=== PATIENT | male | born 1950 | race Caucasian/White ===

== ENCOUNTER 2021-05-03 08:27 | Outpatient (REF) | payer BC, SELFPAY ==
[2021-05-03 10:33] LABS: Hemoglobin 16.1 g/dl (14.0-18.0); Mean Corpuscular Hemoglobin 32.3 pg (27.0-33.0); Mean Corpuscular Volume 92.4 fL (80.0-98.0); Mean Platelet Volume 10.5 fL (9.4-12.4); Platelet Count 318 X10*3/uL (160-400); Red Blood Count 4.98 X10*6/uL (4.60-5.80); Red Cell Distribution Width 12.1 % (11.0-16.0); White Blood Count 8.1 X10*3/uL (4.8-10.8)
[2021-05-03 11:18] LABS: Alanine Aminotransferase 32 U/L (0-40); Albumin Level 4.6 g/dL (3.5-5.0); Alkaline Phosphatase 70 U/L (39-117); Anion Gap 12 (12-20); Aspartate Amino Transferase 32 U/L (5-37); Blood Urea Nitrogen 7 mg/dL (9-16); Calcium 10.1 mg/dL (8.4-10.2); Carbon Dioxide 30 mmol/L (22-29); Chloride 96 mmol/L (96-108); Cholesterol 141 mg/dL; Estimated Glomerular Filt Rate > 60; Glucose Fasting 106 mg/dL (60-99); HDL Cholesterol 73 mg/dL; LDL Cholesterol Calculated 46 mg/dl; Potassium 4.4 mmol/L (3.3-5.1); Sodium 134 mmol/L (135-145); Total Protein 7.6 g/dL (6.5-8.0); Triglycerides 110 mg/dL
[2021-05-03 11:36] LABS: Estimated Average Glucose 105 mg/dL; Hemoglobin A1C 149.0676 umol/L; Hemoglobin A1c % 5.3 %
[2021-05-03 11:39] LABS: TSH reflex Free T4 1.17 uIU/mL (0.32-4.0)
== END 2021-05-03 08:28 | disposition home or self-care (01) ==
LOC: HO.WFDLDS 08:27
PROVIDERS: Visit Provider Hospitalist
DX: Z00.00 Encounter for general adult medical examination without abnormal findings (principal); E11.9 Type 2 diabetes mellitus without complications
CPT/HCPCS: 36415; 80053; 80061; 83036; 84443; 85027

== ENCOUNTER 2021-08-27 12:20 | Day surgery (SDC) | payer BC, SELFPAY ==
[2021-08-27 13:00] VITALS: BMI 24.6
[2021-08-27 13:09] VITALS: BP 148/96; PULSE 102; RESP 16; TEMP 36.4; O2SAT 99
[2021-08-27] MEDS: Lactated Ringers 1,000 ML 50 ML IVCONT (13:23)
--- NOTE | 2021-08-27 13:42 | HO.ANESPROP2 ---
[facility] Active Problems Active Problems: All Active Problems (Updated 04/23/21 @ 13:48 by Claudia Del Rosario NP) Diabetes type 2, controlled (Acute) Normal physical exam (Acute) Essential hypertension (Acute) Family History Family History Father Colon cancer Mother H/O thyroidectomy Daughter In good health Daughter In good health Sister No problems noted. Brother No problems noted. Family history of problems with anesthesia: No Surgical History Surgical History History of tonsillectomy and adenoidectomy History of Problems with Anesthesia: No Social History Social History Housing: House Patient Tobacco Use Status: Never used Tobacco e-Cigarette/Vaping Use: Never Used Use of substances other than those prescribed or required for medical reasons: No Are you DNR?: No Advance Directives: No Advance Directives Information Provided: Yes Current occupational status: employed Meds Allergies Allergy/AdvReac Type Severity Reaction Status Date / Time No Known Allergies Allergy Verified 08/27/21 13:00 Active Medications: Current Medications Lactated Ringer's (Lr) 1,000 mls @ 50 mls/hr IVCONT .Q20H SUNDAY Last Admin: 08/27/21 13:23 Dose: 50 mls/hr Documented by: Sodium Biphosphate/Sodium Phosphate (Sodium Phosphate,[place]-Dibasic 133 Ml Enema) 133 ml NE ONCE PRN PRN Reason: Poor Colonoscopy Prep Results Exam Exam Date and Time: August 27, 2021 1342 Height,Weight and Vital Signs: Height 6 ft 1 in Weight 84.822 kg Last Vital Signs Temp 97.5 F 08/27/21 13:09 Pulse 102 H 08/27/21 13:09 Resp 16 08/27/21 13:09 BP 148/96 H 08/27/21 13:09 Pulse Ox 99 08/27/21 13:09 Airway Mallampati Class: III TM Dist: >3cm Neck ROM: Full Assessment and Plan Assessment Anesthesia Assessment: Anesthesia Plan Discussed and Chart Reviewed Final Anesthetic Review Family History of Problems with Anesthesia: No History of Problems with Anesthesia: No NPO: Yes ASA Class: III Final Preanesthetic Review: No Changes in Pt Med Stat, Meds/Allgs Chart Reviewed, Consent Obtained/Reviewed and Anes Risks/Benef Reviewed Patient Risk: Intermediate Procedure Risk: Low Anesthetic Plan Anesthetic Plan: MAC: Disposition: Standard PACU
[2021-08-27 14:33] LABS: Glucose, Whole Blood 94 mg/dL (60-115)
[2021-08-27 16:05] VITALS: BP 107/64; PULSE 80; RESP 16; TEMP 36.5; O2SAT 95
--- NOTE | 2021-08-27 16:06 | PM.OP ---
Brief Operative Note Date of Service: 08/27/21 Pre-op diagnosis: Screening Post-op diagnosis: other (Colon polyps) Procedure: Colonoscopy to the cecum and TI with bx/removal of polyps, and hot snare polypectomies of a proximal transverse colon polyp and a polyp at 30cm Surgeon: Issa Alvarez Anesthesia: MAC Was an Bulb Planter used for this Procedure?: No Estimated blood loss (mL): 2.0 Pathology: other (A. Cecal polyp B. Ascending colon polyp C. Proximal transverse colon polyps D. Polyp at 60cm E. Polyp at 30cm) Condition: stable Disposition: PACU
[2021-08-27 16:20] VITALS: BP 125/82; PULSE 78; RESP 18; TEMP 36.8; O2SAT 98
[2021-08-27 16:35] VITALS: BP 142/86; PULSE 80; RESP 20; TEMP 36.7; O2SAT 98
--- NOTE | 2021-08-27 21:35 | OP_ITS ---
SURGEON: Issa Alvarez MD INDICATIONS: The patient presents for followup of colorectal cancer screening, personal history of tubular adenoma of the colon, and family history of colon cancer. Full consent was obtained from him for the procedure, including risks of bleeding and perforation. PREOPERATIVE DIAGNOSIS: POSTOPERATIVE DIAGNOSIS: PROCEDURE PERFORMED: Colonoscopy to the cecum and terminal ileum with hot snare polypectomy and cold biopsy with removal of polyps. ESTIMATED BLOOD LOSS: COMPLICATIONS: ANESTHESIA: Monitored anesthesia care. ASSISTANTS: SPECIMENS: PREOPERATIVE DIAGNOSES: Colorectal cancer screening, personal history of tubular adenoma of the colon, family history of colon cancer. POSTOPERATIVE DIAGNOSES: Colorectal cancer screening, personal history of tubular adenoma of the colon, family history of colon cancer, colon polyps, diverticulosis and internal hemorrhoids. DESCRIPTION OF PROCEDURE: The patient was placed in the left lateral decubitus position. The digital rectal exam revealed no abnormalities. The [employer] video pediatric colonoscope was entered into the rectum and advanced easily to the cecum. Once in the cecum, I did identify a normal-appearing cecal pouch other than a 3 mm polyp, which was biopsied and completely removed with the cold biopsy forceps. The appendiceal orifice appeared normal. The terminal ileum was cannulated and appeared normal. The scope was withdrawn into the colon. The remainder of the cecum appeared normal. The scope was slowly withdrawn assessing all mucosal surfaces carefully. Preparation was excellent. In the ascending colon was a flat 3 or 4 mm polyp, which was biopsied and completely removed with the cold biopsy forceps. In the proximal transverse colon was a 3 mm polyp, which was biopsied and completely removed with the cold biopsy forceps. In the same area was an approximately 8-10 mm polyp, which was removed with a hot snare polypectomy and recovered by suction. The polypectomy site appeared clean, without any sign of residual polyp nor bleeding. At 60 cm was a 3 or 4 mm polyp, which was biopsied and completely removed with the cold biopsy forceps. At 30 cm was an approximately 8-10 mm polyp, which was removed by hot snare polypectomy and recovered by suction. The polypectomy site appeared clean, without any sign of residual polyp nor bleeding. I did not visualize any other polyps, colitis, nor angiodysplasia. There was a mild amount of sigmoid diverticulosis. In the rectum, the scope was retroflexed visualizing small internal hemorrhoids, but no other pathology. The rectal mucosa appeared normal. The scope was straightened and withdrawn from the patient. He tolerated the procedure well and was returned to the recovery area in stable condition. IMPRESSION: 1. Colon polyps. 2. Diverticulosis. 3. Internal hemorrhoids. PLAN: The results of the pathology will be checked. I would recommend a repeat colonoscopy in 5 years for further surveillance. He was advised not to use any aspirin and NSAIDs for 1 week. He will otherwise see me on a p.r.n. basis. MD VIBHA Johnson/RYLAND / [id number]
== END 2021-08-27 16:48 | disposition home or self-care (01) ==
PROVIDERS: PCP Hospitalist; Visit Provider Internal Medicine
PROC: 0DJD8ZZ Inspection of Lower Intestinal Tract, Via Natural or Artificial Opening Endoscopic (ICD-10-PCS; CPT 45378; principal; 2021-08-27 13:30)
DX: Z12.11 Encounter for screening for malignant neoplasm of colon (principal); Z86.010 Personal history of colon polyps; Z80.0 Family history of malignant neoplasm of digestive organs; D12.0 Benign neoplasm of cecum; D12.2 Benign neoplasm of ascending colon; D12.3 Benign neoplasm of transverse colon; D12.4 Benign neoplasm of descending colon; D12.5 Benign neoplasm of sigmoid colon; K57.30 Diverticulosis of large intestine without perforation or abscess without bleeding; K64.8 Other hemorrhoids; I10 Essential (primary) hypertension; E78.5 Hyperlipidemia, unspecified; E11.9 Type 2 diabetes mellitus without complications; Z79.84 Long term (current) use of oral hypoglycemic drugs; Z79.899 Other long term (current) drug therapy
CPT/HCPCS: 45385; 45380; 82947; 88305

== ENCOUNTER 2022-07-05 08:11 | Outpatient (REF) | payer MEDICARE, SELFPAY ==
[2022-07-05 11:13] LABS: Hemoglobin 16.8 g/dl (14.0-18.0); Mean Corpuscular HGB Conc 34.3 g/dl (31.0-36.0); Mean Corpuscular Volume 93.3 fL (80.0-98.0); Mean Platelet Volume 10.9 fL (9.4-12.4); Platelet Count 304 X10*3/uL (160-400); Red Blood Count 5.25 X10*6/uL (4.60-5.80); Red Cell Distribution Width 12.5 % (11.0-16.0)
[2022-07-05 11:50] LABS: Appearance Urine Clear; Color Urine Yellow; Glucose Urine UA Negative (Negative); Leukocyte Esterase Urine Negative (Negative); Nitrite Urine Negative (Negative); Specific Gravity - Urine 1.015 (1.005-1.025); Urine Blood Negative (Negative); Urine Ketones Negative (Negative); Urine Protein Negative (Neg-Trace)
[2022-07-05 12:06] LABS: Alanine Aminotransferase 20 U/L (0-40); Albumin Level 4.3 g/dL (3.5-5.0); Alkaline Phosphatase 72 U/L (39-117); Anion Gap 15 (12-20); Aspartate Amino Transferase 25 U/L (5-37); Blood Urea Nitrogen 11 mg/dL (9-16); Calcium 9.2 mg/dL (8.4-10.2); Carbon Dioxide 26 mmol/L (22-29); Chloride 99 mmol/L (96-108); Cholesterol 174 mg/dL; Estimated Glomerular Filt Rate > 60; Glucose Fasting 110 mg/dL (60-99); HDL Cholesterol 75 mg/dL; LDL Cholesterol Calculated 71 mg/dl; Potassium 4.3 mmol/L (3.3-5.1); Sodium 136 mmol/L (135-145); Total Protein 6.7 g/dL (6.5-8.0); Triglycerides 144 mg/dL
[2022-07-05 12:08] LABS: TSH reflex Free T4 1.59 uIU/mL (0.32-4.0)
[2022-07-12 01:24] LABS: PSA, Ultra Sensitive 2.01 ng/mL
== END 2022-07-05 08:12 | disposition home or self-care (01) ==
LOC: HO.WFDLDS 08:11
PROVIDERS: Visit Provider Hospitalist
DX: Z00.00 Encounter for general adult medical examination without abnormal findings (principal); Z12.5 Encounter for screening for malignant neoplasm of prostate; Z11.3 Encounter for screening for infections with a predominantly sexual mode of transmission
CPT/HCPCS: 36415; 80053; 80061; 81003; 84153; 84443; 85027

== ENCOUNTER 2023-01-20 11:15 | Outpatient (AMB) | payer MEDICARE, SELFPAY ==
[2023-01-20 11:16] VITALS: BP 146/80; PULSE 88; RESP 13; TEMP 36.6; O2SAT 99; BMI 25.9
--- NOTE | 2023-01-20 11:16 | A.OFFPC_ITS ---
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: No Accompanied by: Self / Same As Patient Allergies No Known Allergies Allergy (Verified 01/20/23 11:38) Medication List - Last Reconciled 01/20/23 by Heidy Loving CNP atorvastatin 20 mg PO DAILY hydrochlorothiazide 12.5 mg PO DAILY lisinopril 40 mg PO DAILY Tobacco use date assessed: 06/12/22 Last assessed Fall Risk: 01/20/23 Dental Screening Dental Screen Date: 01/20/23 Did you have a dental visit in the last 12 months?: Yes Did you have a dental problem in the last 6 months where you did not have access to dental care?: No Was dental information given to patient?: Patient has dentist HPI HPI Comments History of Present Illness Details 72-year-old male presents for hypertensi on, hyperlipidemia, and diabetes follow-up. His former PCP is JAXON, who was no longer in the practice. His last blood work was in June 2022. Triglyceride level was 144, cholesterol 174, LDL, 71 and HDL 75. He is on atorvastatin, hydrochlorothiazide, and lisinopril. He admits to taking his medications as prescribed, however, he forgets to take them once or twice weekly. He notes that his diabetes has been well controlled. He was on metformin insulin year ago, his PCP discontinued the medication. He admits to consuming excessive amount of salt. He states that his last eye exam was early this year at [facility]: normal. [facility] Medical History (Updated 01/20/23 @ 11:23 by Little Dumont MA) No pertinent past medical history Surgical History History of tonsillectomy and adenoidectomy Family History Father Colon cancer Mother H/O thyroidectomy Daughter In good health Daughter In good health Sister No problems noted. Brother No problems noted. Social History Housing: House Patient Tobacco Use Status: Never used Tobacco e-Cigarette/Vaping Use: Never Used service: No Current occupational status: retired Cognitive needs: No Hearing needs: No Vision needs: No Questionnaire Thrive Questionnaire Date Thrive assessed: 06/12/22 SUZANNE-7 AMB Questionnaire SUZANNE-7 Date SUZANNE - 7 assessed: 06/12/22 Source: Developed by Drs. Issa Reynolds, Autumn Wilson, Omi Carlin and colleagues, with an educational ewa from [employer]. Review of Systems Const Details: Const Denies chills, Denies fatigue, Denies fever(s), Denies headache(s) and Denies weakness ENT Denies dizziness and Denies headache(s) Card Denies chest pain, Denies lightheadedness, Denies dyspnea and Denies other (Palpitations) Resp Denies cough, Denies dyspnea, Denies wheezing and Denies other ( shortness of breath) GI Denies abdominal pain, Denies melena, Denies hematochezia, Denies change in bowel habits, Denies dyspepsia and Denies nausea Denies hematuria and Denies dysuria Musc Denies abnormal gait, Denies myalgias, Denies arthralgias, Denies numbness and Denies tingling Skin/Breast Denies rash, Denies unusual bruising and Denies wounds Neuro Denies abnormal gait, Denies dizziness, Denies headache(s), Denies memory loss, Denies numbness, Denies Sensory deficit (Neuro), Denies tingling and Denies weakness Psych Denies anxiety, Denies depression, Denies memory loss Endo Denies cold intolerance, Denies fatigue, Denies heat intolerance, Denies polydipsia and Denies polyuria Aller/Immun Denies wheezing Physical exam (Primary Care) Vital Signs: Last Vital Signs Temp 97.8 F 01/20/23 11:16 Pulse 88 01/20/23 11:16 Resp 13 01/20/23 11:16 BP 146/80 H 01/20/23 11:16 Pulse Ox 99 01/20/23 11:16 Oxygen Delivery Method Room Air 01/20/23 11:16 BMI result Body Mass Index 25.9 Tobacco/Smoking Status: Tobacco use Status Tobacco use date assessed 06/12/22 01/20/23 11:23 Patient Tobacco Use Status Never used Tobacco 01/20/23 11:23 e-Cigarette/Vaping Use Never Used 01/20/23 11:23 Thrive Assessment: Date of Thrive Assessment Date Thrive assessed 06/12/22 01/20/23 11:23 Const Other: General: no acute distress and well developed Nutritional Appearance: well nourished Orientation/consciousness: patient oriented x3 HENMT Head: Yes normocephalic and Yes atraumatic Eyes General: appearance normal, both eyes and all related structures Pupils: Equal, round and reactive pupils present EOM: EOMs intact bilaterally Resp Effort & Inspection: normal respiratory effort Auscultation: clear to auscultation bilaterally Cardio Rate: regular rate Rhythm: regular rhythm Heart sounds: S1 normal heart sound present, S2 normal heart sound present, no gallops, no murmurs and no rubs GI Palpation (GI): No Abdominal aortic bruit present, Soft to palpation, nontender, No hepatosplenomegaly present and No Rebound tenderness present Auscultation: normal bowel sounds General: Yes no CVA tenderness Back/Spine/Pelvis Back: no CVA tenderness Cervical Spine: cervical ROM normal and No Cervical spine tenderness Thoracic/Lumbar Spine: thoraco-lumbar ROM normal, No pain with thoraco-lumbar ROM, No thoracic spinal tenderness and No lumbar spinal tenderness Extrem General: Yes normal to inspection, No edema and No calf tenderness Skin General: warm and dry. Normal skin color. Normal skin turgor Lesions: no lesions Rashes: no rashes Trauma: no lacerations or abrasions Wounds: no wounds Nails: normal Neuro General: patient oriented x3, gait normal and no focal neuro deficit Cranial nerves: Yes Equal, round and reactive pupils present Cognition (Neuro): normal cognition Gait exam (Neuro): Normal gait present Sensory Exam: No Sensory deficit (Neuro) Psych Appearance: grossly normal Affect: normal affect Attitude: cooperative Thought process: Normal thought process present Results AMB Hemoglobin A1c AMB Hemoglobin A1c 5.6 % Last Edit by Little Dumont MA on 01/20/23 11:47 Assessment and Plan Assessment & Plan (1) Diabetes type 2, controlled: Code(s): E11.9 - Type 2 diabetes mellitus without complications Plan: A1c today is 5.6%, within goal of less than 7.0%. Previous A1c a year ago was 5.4% Lipid levels were normal in June. LDL was 71 Will repeat lipid panel. Advised to fast for at least 10-12 hours and get blood work done before next visit. Will review the results and make changes to his care plan if warranted. Continue to take atorvastatin as prescribed. ADA diet and routine exercise encouraged Follow-up in 1 month for hypertension Return sooner with symptoms or concerns Verbalized understanding and agreed with treatment plan. (2) Essential hypertension: Code(s): I10 - Essential (primary) hypertension Plan: Resting blood pressure is 140/80, slightly above goal of less than 140/90 Continue to take lisinopril and hydrochlorothiazide as prescribed He admits to excessive sodium intake. Advised to limit sodium intake to no more than a 1000 mg daily He notes he had a normal eye exam earlier this year. Record not available for review. Will request record. Follow-up in 1 month or return sooner with symptoms or concerns Verbalized understanding and agreed with treatment plan. Orders: Orders Lipid Panel Today E11.9 - Type 2 diabetes mellitus without complications AMB Hemoglobin A1c Today Z13.9 - Encounter for screening, unspecified Coding Level of Care Code Est Pt Level 3 (16821) Diagnoses Diabetes type 2, controlled E11.9 Essential hypertension I10
[2023-01-20 11:38] VITALS: BP 140/80
== END 2023-01-20 11:58 | disposition home or self-care (01) ==
PROVIDERS: PCP Nurse Practitioner Family; Visit Provider Nurse Practitioner Family
DX: E11.9 Type 2 diabetes mellitus without complications (principal); I10 Essential (primary) hypertension
CPT/HCPCS: 83036; 99213

== ENCOUNTER 2023-02-12 09:21 | Outpatient (REF) | payer MEDICARE, SELFPAY ==
[2023-02-12 12:30] LABS: Cholesterol 174 mg/dL (<200); HDL Cholesterol 69 mg/dL (>40); LDL Cholesterol Calculated 74 mg/dL (<100); Triglycerides 155 mg/dL (<150)
== END 2023-02-12 09:22 | disposition home or self-care (01) ==
LOC: HO.WFDLDS 09:21
PROVIDERS: Visit Provider Nurse Practitioner Family
DX: E11.9 Type 2 diabetes mellitus without complications (principal)
CPT/HCPCS: 36415; 80061

== ENCOUNTER 2023-03-17 11:32 | Outpatient (AMB) | payer MEDICARE, SELFPAY ==
[2023-03-17 11:39] VITALS: BP 144/80; PULSE 97; RESP 13; TEMP 36.6; O2SAT 99; BMI 25.8
--- NOTE | 2023-03-17 11:39 | MHC.PC.OV ---
Vital Signs 03/17/23 11:39 03/17/23 12:12 Height 6 ft 1 in Weight 195 lb 4 oz BMI 25.8 BP 144/80 H 120/80 Blood Pressure Location Rt brachial Lt brachial Position Sitting Sitting Respiration 13 Pulse 97 Pulse Source Pulse Oximeter Temp 97.9 F Temp Source Temporal Artery Scan Pulse Oximetry (%) 99 Oxygen Delivery Method Room Air Intake Visit Reasons: f/u HTN Glass Designer Required: No Accompanied by: Spouse Allergies No Known Allergies Allergy (Verified 03/17/23 11:59) Medication List - Last Reconciled 03/17/23 by Heidy Loving CNP atorvastatin 20 mg PO DAILY hydrochlorothiazide 12.5 mg PO DAILY lisinopril 40 mg PO DAILY Tobacco use date assessed: 03/17/23 Fall risk assessment: No Falls in past year Last assessed Fall Risk: 03/17/23 Dental Screening Dental Screen Date: 03/17/23 Did you have a dental visit in the last 12 months?: Yes Did you have a dental problem in the last 6 months where you did not have access to dental care?: No Was dental information given to patient?: Patient has dentist HPI HPI Comments History of Present Illness Details 73 y/o male, accompanied by his , presents for HTN follow up His resting BP at his last vist was 140/80 He admits to taking his medications as prescribed He states that his home BP readings in the past 3 days are 130/84, 135/81, and 113/75 He notes that he completely eliminated salt in his diet since his last office visit He offers no complaints and denies acute symptoms at this time [facility] Medical History No pertinent past medical history Surgical History History of tonsillectomy and adenoidectomy Family History Father Colon cancer Mother H/O thyroidectomy Daughter In good health Daughter In good health Sister No problems noted. Brother No problems noted. Housing: House Patient Tobacco Use Status: Never used Tobacco e-Cigarette/Vaping Use: Never Used service: No Current occupational status: retired Cognitive needs: No Hearing needs: No Vision needs: No Questionnaire Thrive Questionnaire Date Thrive assessed: 06/12/22 SUZANNE-7 AMB Questionnaire SUZANNE-7 Date SUZANNE - 7 assessed: 06/12/22 Source: Developed by Drs. Issa Reynolds, Autumn Wilson, Omi Carlin and colleagues, with an educational ewa from [employer]. Review of Systems Const Details: Const Denies chills, Denies fatigue, Denies fever(s), Denies headache(s) and Denies weakness ENT Denies dizziness and Denies headache(s) Card Denies chest pain, Denies lightheadedness, Denies dyspnea and Denies other (Palpitations) Resp Denies cough, Denies dyspnea, Denies wheezing and Denies other ( shortness of breath) GI Denies abdominal pain, Denies melena, Denies hematochezia, Denies change in bowel habits, Denies dyspepsia and Denies nausea Denies hematuria and Denies dysuria Musc Denies abnormal gait, Denies myalgias, Denies arthralgias, Denies numbness and Denies tingling Skin/Breast Denies rash, Denies unusual bruising and Denies wounds Neuro Denies abnormal gait, Denies dizziness, Denies headache(s), Denies memory loss, Denies numbness, Denies Sensory deficit (Neuro), Denies tingling and Denies weakness Psych Denies anxiety, Denies depression, Denies memory loss Endo Denies cold intolerance, Denies fatigue, Denies heat intolerance, Denies polydipsia and Denies polyuria Aller/Immun Denies wheezing Physical exam (Primary Care) Vital Signs: Last Vital Signs Temp 97.9 F 03/17/23 11:39 Pulse 97 03/17/23 11:39 Resp 13 03/17/23 11:39 BP 144/80 H 03/17/23 11:39 Pulse Ox 99 03/17/23 11:39 Oxygen Delivery Method Room Air 03/17/23 11:39 BMI result Body Mass Index 25.8 Tobacco/Smoking Status: Tobacco use Status Tobacco use date assessed 03/17/23 03/17/23 11:47 Patient Tobacco Use Status Never used Tobacco 03/17/23 11:47 e-Cigarette/Vaping Use Never Used 03/17/23 11:47 Thrive Assessment: Date of Thrive Assessment Date Thrive assessed 06/12/22 03/17/23 11:47 Const Other: General: no acute distress and well developed Nutritional Appearance: well nourished Orientation/consciousness: patient oriented x3 [facility] Head: Yes normocephalic and Yes atraumatic Eyes General: appearance normal, both eyes and all related structures Pupils: Equal, round and reactive pupils present EOM: EOMs intact bilaterally Resp Effort & Inspection: normal respiratory effort Auscultation: clear to auscultation bilaterally Cardio Rate: regular rate Rhythm: regular rhythm Heart sounds: S1 normal heart sound present, S2 normal heart sound present, no gallops, no murmurs and no rubs GI Palpation (GI): No Abdominal aortic bruit present, Soft to palpation, nontender, No hepatosplenomegaly present and No Rebound tenderness present Auscultation: normal bowel sounds General: Yes no CVA tenderness Back/Spine/Pelvis Back: no CVA tenderness Cervical Spine: cervical ROM normal and No Cervical spine tenderness Thoracic/Lumbar Spine: thoraco-lumbar ROM normal, No pain with thoraco-lumbar ROM, No thoracic spinal tenderness and No lumbar spinal tenderness Extrem General: Yes normal to inspection, No edema and No calf tenderness Skin General: warm and dry. Normal skin color. Normal skin turgor Lesions: no lesions Rashes: no rashes Trauma: no lacerations or abrasions Wounds: no wounds Nails: normal Neuro General: patient oriented x3, gait normal and no focal neuro deficit Cranial nerves: Yes Equal, round and reactive pupils present Cognition (Neuro): normal cognition Gait exam (Neuro): Normal gait present Sensory Exam: No Sensory deficit (Neuro) Psych Appearance: grossly normal Affect: normal affect Attitude: cooperative Thought process: Normal thought process present Assessment and Plan Assessment & Plan (1) Essential hypertension: Code(s): I10 - Essential (primary) hypertension Plan: Resting blood pressure is 120/80, slightly above goal of less than 130/80 Continue current treatment regimen Low-sodium diet encouraged Follow-up in 2 months or return sooner with symptoms or concerns Verbalized understanding and agreed with treatment plan (2) Hyperlipidemia: Code(s): E78.5 - Hyperlipidemia, unspecified Plan: Recent LDL 74, slightly above goal of less than 70 Continue current treatment regimen Advised to limit foods high in saturated fat and avoid foods high in trans fat Routine exercise encouraged Will recheck lipid level in 2 months. Advised to get fasting blood work done before next visit Follow-up in 2 months Verbalized understanding and agreed with treatment plan Orders: Orders Lipid Panel 2 Months E11.9 - Type 2 diabetes mellitus without complications, E78.5 - Hyperlipidemia, unspecified Coding Level of Care Code Est Pt Level 3 (90025) Diagnoses Essential hypertension I10 Hyperlipidemia E78.5
[2023-03-17 12:12] VITALS: BP 120/80
== END 2023-03-17 12:26 | disposition home or self-care (01) ==
PROVIDERS: PCP Nurse Practitioner Family; Visit Provider Nurse Practitioner Family
DX: I10 Essential (primary) hypertension (principal); E78.5 Hyperlipidemia, unspecified
CPT/HCPCS: 99213

== ENCOUNTER 2023-05-22 08:30 | Outpatient (REF) | payer MEDICARE, SELFPAY ==
[2023-05-22 11:55] LABS: Cholesterol 159 mg/dL (<200); HDL Cholesterol 79 mg/dL (>40); LDL Cholesterol Calculated 53 mg/dL (<100); Triglycerides 135 mg/dL (<150)
== END 2023-05-22 08:31 | disposition home or self-care (01) ==
LOC: HO.WFDLDS 08:30
PROVIDERS: Visit Provider Nurse Practitioner Family
DX: E11.9 Type 2 diabetes mellitus without complications (principal); E78.5 Hyperlipidemia, unspecified
CPT/HCPCS: 36415; 80061

== ENCOUNTER 2023-05-26 09:59 | Outpatient (AMB) | payer MEDICARE, SELFPAY ==
[2023-05-26 10:01] VITALS: BP 144/78; PULSE 75; RESP 13; TEMP 36.5; O2SAT 99; BMI 25.6
--- NOTE | 2023-05-26 10:01 | A.OFFPC_ITS ---
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 Accompanied by: Self / Same As Patient Allergies No Known Allergies Allergy (Verified 05/26/23 10:20) Medication List - Last Reconciled 05/26/23 by Heidy Loving CNP atorvastatin 20 mg PO DAILY hydrochlorothiazide 12.5 mg PO DAILY lisinopril 40 mg PO DAILY Tobacco use date assessed: 05/26/23 Fall risk assessment: No Falls in past year Last assessed Fall Risk: 05/26/23 Dental Screening Dental Screen Date: 05/26/23 Did you have a dental visit in the last 12 months?: Yes Did you have a dental problem in the last 6 months where you did not have access to dental care?: No Was dental information given to patient?: Patient has dentist HPI HPI Comments 2 History of Present Illness Details 73-year-old male presents for hypertensi on, hyperlipidemia, and diabetes follow-up He admits to taking his medications as prescribed without adverse reactions He brought a BP log for the past nine days. His BP is 128-140/73-91 He offers no complaints and denies acute symptoms at this time He notes that his last eye exam was almost a year ago. His next appointment is next month He states he has not been followed by Podiatry in several years and does not want to be referred at this time. He will notify his PCP if he changes his mind on podiatry referral [facility] Medical History No pertinent past medical history Surgical History History of tonsillectomy and adenoidectomy Family History (Updated 05/26/23 @ 10:09 by Little Dumont MA) Father Colon cancer Mother H/O thyroidectomy Daughter In good health Daughter In good health Sister No problems noted. Brother No problems noted. Social History Housing: House Patient Tobacco Use Status: Never used Tobacco e-Cigarette/Vaping Use: Never Used service: No Current occupational status: retired Cognitive needs: No Hearing needs: No Vision needs: No Questionnaire Thrive Questionnaire Date Thrive assessed: 06/12/22 SUZANNE-7 AMB Questionnaire SUZANNE-7 Date SUZANNE - 7 assessed: 06/12/22 Source: Developed by Drs. Issa Reynolds, Autumn Wilson, Omi Carlin and colleagues, with an educational ewa from [employer] Review of Systems Const Details: Const Denies chills, Denies fatigue, Denies fever(s), Denies headache(s) and Denies weakness ENT Denies dizziness and Denies headache(s) Card Denies chest pain, Denies lightheadedness, Denies dyspnea and Denies other (Palpitations) Resp Denies cough, Denies dyspnea, Denies wheezing and Denies other ( shortness of breath) GI Denies abdominal pain, Denies melena, Denies hematochezia, Denies change in bowel habits, Denies dyspepsia and Denies nausea Denies hematuria and Denies dysuria Musc Denies abnormal gait, Denies myalgias, Denies arthralgias, Denies numbness and Denies tingling Skin/Breast Denies rash, Denies unusual bruising and Denies wounds Neuro Denies abnormal gait, Denies dizziness, Denies headache(s), Denies memory loss, Denies numbness, Denies Sensory deficit (Neuro), Denies tingling and Denies weakness Psych Denies anxiety, Denies depression, Denies memory loss Endo Denies cold intolerance, Denies fatigue, Denies heat intolerance, Denies polydipsia and Denies polyuria Aller/Immun Denies wheezing Physical exam (Primary Care) Vital Signs: Last Vital Signs Temp 97.7 F 05/26/23 10:01 Pulse 75 05/26/23 10:01 Resp 13 05/26/23 10:01 BP 144/78 H 05/26/23 10:01 Pulse Ox 99 05/26/23 10:01 Oxygen Delivery Method Room Air 05/26/23 10:01 BMI result Body Mass Index 25.6 Tobacco/Smoking Status: Tobacco use Status Tobacco use date assessed 05/26/23 05/26/23 10:09 Patient Tobacco Use Status Never used Tobacco 05/26/23 10:05 e-Cigarette/Vaping Use Never Used 05/26/23 10:05 Thrive Assessment: Date of Thrive Assessment Date Thrive assessed 06/12/22 05/26/23 10:05 Const Other: General: no acute distress and well developed Nutritional Appearance: well nourished Orientation/consciousness: patient oriented x3 HENMT Head: Yes normocephalic and Yes atraumatic Eyes General: appearance normal, both eyes and all related structures Pupils: Equal, round and reactive pupils present EOM: EOMs intact bilaterally Resp Effort & Inspection: normal respiratory effort Auscultation: clear to auscultation bilaterally Cardio Rate: regular rate Rhythm: regular rhythm Heart sounds: S1 normal heart sound present, S2 normal heart sound present, no gallops, no murmurs and no rubs GI Palpation (GI): No Abdominal aortic bruit present, Soft to palpation, nontender, No hepatosplenomegaly present and No Rebound tenderness present Auscultation: normal bowel sounds General: Yes no CVA tenderness Back/Spine/Pelvis Back: no CVA tenderness Cervical Spine: cervical ROM normal and No Cervical spine tenderness Thoracic/Lumbar Spine: thoraco-lumbar ROM normal, No pain with thoraco-lumbar ROM, No thoracic spinal tenderness and No lumbar spinal tenderness Extrem General: Yes normal to inspection, No edema and No calf tenderness Skin General: warm and dry. Normal skin color. Normal skin turgor Neuro General: patient oriented x3, gait normal and no focal neuro deficit Cranial nerves: Yes Equal, round and reactive pupils present Cognition (Neuro): normal cognition Gait exam (Neuro): Normal gait present Sensory Exam: No Sensory deficit (Neuro) Psych Appearance: grossly normal Affect: normal affect Attitude: cooperative Thought process: Normal thought process present Results AMB Hemoglobin A1c AMB Hemoglobin A1c 5.4 % Last Edit by Little Dumont MA on 05/26/23 10:38 Assessment and Plan Assessment & Plan (1) Diabetes type 2, controlled: Code(s): E11.9 - Type 2 diabetes mellitus without complications Plan: A1c today is 5.4%, within goal of less than 7.0% ADA diet and routine exercise encouraged Will recheck A1c in 3 months Follow-up for complete physical exam in 1 month Return sooner with symptoms or concerns Verbalized understanding and agreed with treatment plan (2) Essential hypertension: Code(s): I10 - Essential (primary) hypertension Plan: Resting blood pressure is 130/80, slightly above goal of less than 130/80 Will increase hydrochlorothiazide to 25 mg daily. Take as prescribed Continue to take lisinopril as prescribed Low-sodium diet encouraged Verbalized understanding and agreed with treatment plan (3) Hyperlipidemia: Code(s): E78.5 - Hyperlipidemia, unspecified Plan: Recent lipid levels her within normal limits. LDL is 53, within goal of less than 70 Continue to take atorvastatin as prescribed Advised to limit foods high in saturated fat and avoid foods high in trans fat Routine exercise encouraged Verbalized understanding and agreed with the plan (4) Laboratory tests ordered as part of a complete physical exam (CPE): Code(s): Z00.00 - Encounter for general adult medical examination without abnormal fin dings Plan: Fasting labs ordered as part of a complete physical exam. Advised to fast for at least 10 hours before getting labs drawn. May drink water Verbalized understanding and agreed with treatment plan. Orders: Orders Comprehensive [place]. Panel Fast Today Z00.00 - Encounter for general adult medical examination without abnormal findings TSH reflex Free T4 Today Z00.00 - Encounter for general adult medical examination without abnormal findings Complete Blood Count Auto Diff Today Z00.00 - Encounter for general adult medical examination without abnormal findings Lipid Panel Today Z00.00 - Encounter for general adult medical examination without abnormal findings PSA, Ultra Sensitive Today Z00.00 - Encounter for general adult medical examination without abnormal findings UA CC w/rflx Micro + Cult Today Z00.00 - Encounter for general adult medical examination without abnormal findings Medications: New hydrochlorothiazide 25 mg PO DAILY 90 days 90 tabs 1RF Discontinued hydrochlorothiazide Discontinued Reason: Doctor's Order 12.5 mg PO DAILY 90 caps 3RF Coding Level of Care Code Est Pt Level 4 (01988) Diagnoses Diabetes type 2, controlled E11.9 Essential hypertension I10 Hyperlipidemia E78.5 Laboratory tests ordered as part of a complete physical exam (CPE) Z00.00
[2023-05-26 10:26] VITALS: BP 130/80
== END 2023-05-26 10:38 | disposition home or self-care (01) ==
PROVIDERS: PCP Nurse Practitioner Family; Visit Provider Nurse Practitioner Family
DX: E11.69 Type 2 diabetes mellitus with other specified complication (principal); I10 Essential (primary) hypertension; E78.5 Hyperlipidemia, unspecified
CPT/HCPCS: 83036; 99214

== ENCOUNTER 2023-06-25 08:08 | Outpatient (REF) | payer MEDICARE, SELFPAY ==
[2023-06-25 12:38] LABS: TSH reflex Free T4 1.36 uIU/mL (0.32-4.0)
[2023-06-25 14:21] LABS: Appearance Urine Clear; Color Urine Yellow; Glucose Urine UA Negative (Negative); Leukocyte Esterase Urine Negative (Negative); Nitrite Urine Negative (Negative); PH 6.5 (5.0-9.0); Urine Blood Negative (Negative); Urine Ketones Negative (Negative); Urine Protein Negative (Neg-Trace)
== END 2023-06-25 08:09 | disposition home or self-care (01) ==
LOC: HO.WFDLDS 08:08
PROVIDERS: Visit Provider Nurse Practitioner Family
DX: Z00.00 Encounter for general adult medical examination without abnormal findings (principal); Z13.29 Encounter for screening for other suspected endocrine disorder; Z13.220 Encounter for screening for lipoid disorders; Z12.5 Encounter for screening for malignant neoplasm of prostate
CPT/HCPCS: 36415; 80053; 80061; 81003; 84153; 84443; 85025

== ENCOUNTER 2023-06-25 08:15 | Outpatient (REF) | payer MEDICARE, SELFPAY ==
[2023-06-25 11:19] LABS: MANUAL DIFF FLAG NO
[2023-06-25 11:25] LABS: Basophils Absolute Auto 0.1 X10*3/uL (0.0-0.2); Basophils Percent Auto 0.7 % (0-2); Eosinophils Absolute Auto 0.1 X10*3/uL (0.0-0.4); Eosinophils Percent Auto 1.3 % (0-4); Hematocrit 44.9 % (42.0-52.0); Hemoglobin 16.1 g/dl (14.0-18.0); Imm Gran Abs Auto 0.02 X10*3/uL (0.00-0.03); Imm Gran Pct Auto 0.3 % (0.0-0.4); Lymphocytes Absolute Auto 2.2 X10*3/uL (1.2-4.9); Lymphocytes Percent Auto 28.8 % (20-40); Mean Corpuscular HGB Conc 35.9 g/dl (31.0-36.0); Mean Corpuscular Hemoglobin 32.5 pg (27.0-33.0); Mean Corpuscular Volume 90.5 fL (80.0-98.0); Mean Platelet Volume 10.2 fL (9.4-12.4); Monocytes Absolute Auto 0.7 X10*3/uL (0.1-1.2); Monocytes Percent Auto 8.6 % (2-11); Neutrophils Absolute Auto 4.5 x10*3/uL (2.0-8.3); Neutrophils Percent Auto 60.3 % (45-73); Platelet Count 295 X10*3/uL (160-400); Red Blood Count 4.96 X10*6/uL (4.60-5.80); Red Cell Distribution Width 11.9 % (11.0-16.0); White Blood Count 7.5 X10*3/uL (4.8-10.8)
[2023-06-25 12:54] LABS: Anion Gap 12 (12-20)
[2023-06-25 13:03] LABS: Alanine Aminotransferase 21 U/L (0-40); Albumin Level 4.6 g/dL (3.5-5.0); Alkaline Phosphatase 67 U/L (39-117); Aspartate Amino Transferase 26 U/L (5-37); Bilirubin Total 1.6 mg/dL (0.0-1.0); Blood Urea Nitrogen 8 mg/dL (9-16); Calcium 9.3 mg/dL (8.4-10.2); Carbon Dioxide 29 mmol/L (22-29); Chloride 93 mmol/L (96-108); Cholesterol 153 mg/dL (<200); Estimated Glomerular Filt Rate > 60; Glucose Fasting 119 mg/dL (60-99); HDL Cholesterol 79 mg/dL (>40); LDL Cholesterol Calculated 48 mg/dL (<100); Potassium 3.5 mmol/L (3.3-5.1); Sodium 130 mmol/L (135-145); Total Protein 7.3 g/dL (6.5-8.0); Triglycerides 132 mg/dL (<150)
[2023-06-30 18:04] LABS: PSA, Ultra Sensitive 2.48 ng/mL
== END 2023-06-25 08:16 | disposition home or self-care (01) ==
LOC: HO.WFDLDS 08:15
PROVIDERS: Visit Provider Nurse Practitioner Family
DX: Z13.89 Encounter for screening for other disorder (principal)
CPT/HCPCS: 36415; 80053; 80061; 84153; 85025

== ENCOUNTER 2023-06-30 09:57 | Outpatient (AMB) | payer MEDICARE, SELFPAY ==
[2023-06-30 10:07] VITALS: BP 128/74; PULSE 82; RESP 13; TEMP 36.2; O2SAT 99; BMI 25.8
--- NOTE | 2023-06-30 10:07 | MHC.PC.OV ---
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 Accompanied by: Self / Same As Patient Allergies No Known Allergies Allergy (Verified 06/30/23 10:34) Medication List - Last Reconciled 06/30/23 by Heidy Loving CNP atorvastatin 20 mg PO DAILY hydrochlorothiazide 25 mg PO DAILY 90 days lisinopril 40 mg PO DAILY Tobacco use date assessed: 05/26/23 Fall risk assessment: No Falls in past year Last assessed Fall Risk: 06/30/23 Dental Screening Dental Screen Date: 06/30/23 Did you have a dental visit in the last 12 months?: Yes Did you have a dental problem in the last 6 months where you did not have access to dental care?: No Was dental information given to patient?: Patient has dentist HPI HPI Comments History of Present Illness Details 73-year-old male presents for an extended physical exam He has history of hypertension, hyperlipidemia, and well-controlled diabetes not currently on medication therapy He admits to taking his medications as prescribed without adverse reactions He offers no complaints and denies acute symptoms at this time He notes that he had a normal eye exam with Dr. Burrows last week Last colonoscopy with [facility] was in Aug, 2021: Tubular adenoma He states that he is up-to-date on shingles, PNA, and influenza vaccines Nonsmoker, drinks 3-5 beers 2-3 times weekly, smokes marijuana occasionally [facility] Medical History No pertinent past medical history Surgical History History of tonsillectomy and adenoidectomy Family History Father Colon cancer Mother H/O thyroidectomy Daughter In good health Daughter In good health Sister No problems noted. Brother No problems noted. Social History Housing: House Patient Tobacco Use Status: Never used Tobacco e-Cigarette/Vaping Use: Never Used service: No Current occupational status: retired Cognitive needs: No Hearing needs: No Vision needs: No Questionnaire PHQ-9 Over the last 2 weeks, how often have you been bothered by any of the following problems? 1. Little interest or pleasure in doing things: not at all 2. Feeling down, depressed, or hopeless: not at all 3. Trouble falling or staying asleep, or sleeping too much: not at all 4. Feeling tired or having little energy: not at all 5. Poor appetite or overeating: not at all 6. Feeling bad about yourself - or that you are a failure or have let yourself or your family down: not at all 7. Trouble concentrating on things, such as reading the newspaper or watching television: not at all 8. Moving or speaking so slowly that other people could have noticed. Or the opposite - being so fidgety or restless that you have been moving around a lot more than usual: not at all 9. Thoughts that you would be better off or of hurting yourself in some way: not at all Total score: 0 Depression Screening Interpretation: Negative Depression Screening Done: Yes 19975 - PHQ-9 Billing: Yes Source: Developed by Drs. Issa Reynolds, Autumn Wilson, Omi Carlin and colleagues, with an educational ewa from [employer] Thrive Questionnaire Date Thrive assessed: 06/30/23 I am a: Patient What is your living situation today?: I have a steady place to live Within the past 12 months, did the food you bought not last and you didn't have the money to get more?: Never true Within the past 12 months, did you worry whether your food would run out before you got money to buy more?: Never true Do you have trouble getting transportation to medical appointments?: No Do you have trouble paying your heating and electricity bill?: No Do you have trouble taking care of your child, family member or friend?: No Do you have trouble with day-to-day activities such as bathing, preparing meals, shopping, managing finances, etc.?: No Are you currently unemployed and looking for a job?: No Are you interested in more education?: Yes Please select the resources that you would like help with: Education Currently or been in a relationship where the following occur: no concerns reported THRIVE Score: 0 AUDIT C Alcohol Use Questionnaire (AUDIT-C) 1. How often do you have a drink containing alcohol?: 2-3 times a week 2. How many drinks containing alcohol do you have on a typical day when you are drinking?: 3 or 4 Total Score: 4 SUZANNE-7 AMB Questionnaire SUZANNE-7 Date SUZANNE - 7 assessed: 06/30/23 Feeling nervous, anxious, or on edge: 1 = Several days Not being able to stop or control worryin = Several days Worrying too much about different things: 1 = Several days Trouble relaxin = Not at all Being so restless that it is hard to sit still: 0 = Not at all Becoming easily annoyed or irritable: 0 = Not at all Feeling afraid as if something awful might happen: 0 = Not at all Total SUZANNE-7 score (0-4 normal; 5-9 mild; 10-14 moderate; 15-21 severe): 3 Source: Developed by Drs. Issa Reynolds, Autumn Wilson, Omi Carlin and colleagues, with an educational ewa from [employer] SUZANNE-7 Assessment Billing SUZANNE-7 Assessment Tool: SUZANNE-7 Assessment 14574 Review of Systems Const Details: Denies chills, Denies fatigue, Denies fever(s), Denies headache(s) and Denies weakness HEENT Denies change in vision, Denies dizziness, Denies headache(s), Denies hearing loss, Denies nasal congestion, Denies sinus pain, Denies sinus pressure and Denies sore throat Card Denies chest pain, Denies lightheadedness, Denies dyspnea and Denies other (palpitations) Resp Denies cough, Denies dyspnea and Denies wheezing GI Denies abdominal pain, Denies melena, Denies hematochezia, Denies change in bowel habits, Denies dyspepsia and Denies nausea Denies hematuria and Denies dysuria Musc Denies abnormal gait, Denies myalgias, Denies arthralgias, Denies numbness and Denies tingling Skin/Breast Denies rash, Denies unusual bruising and Denies wounds Neuro Denies abnormal gait, Denies dizziness, Denies headache(s), Denies memory loss, Denies numbness, Denies Sensory deficit (Neuro), Denies tingling and Denies weakness Psych Denies anxiety, Denies depression and Denies memory loss Endo Denies cold intolerance, Denies fatigue, Denies heat intolerance, Denies polydipsia and Denies polyuria Davey/Lymph Denies easy bleeding and Denies easy bruising Aller/Immun Denies wheezing Physical exam (Primary Care) Vital Signs: Last Vital Signs Temp 97.2 F 06/30/23 10:07 Pulse 82 06/30/23 10:07 Resp 13 06/30/23 10:07 BP 128/74 06/30/23 10:07 Pulse Ox 99 06/30/23 10:07 Oxygen Delivery Method Room Air 06/30/23 10:07 BMI result Body Mass Index 25.8 Tobacco/Smoking Status: Tobacco use Status Tobacco use date assessed 05/26/23 06/30/23 10:18 Patient Tobacco Use Status Never used Tobacco 06/30/23 10:18 e-Cigarette/Vaping Use Never Used 06/30/23 10:18 PHQ-9: PHQ-9 Score PHQ-9: Total score 0 06/30/23 10:18 Depression Screening Interpretation: Negative Thrive Assessment: Date of Thrive Assessment Date Thrive assessed 06/30/23 06/30/23 10:18 Currently or been in a relationship where the following occur: no concerns reported Const Other: General: no acute distress, well developed, alert and awake Nutritional Appearance: well nourished Orientation/consciousness: patient oriented x3 HENMT Head: Yes normocephalic and Yes atraumatic Ears: hearing grossly normal bilaterally and TM's normal bilaterally General nose exam: Normal external nose present and Normal nares present Mouth: Normal oral and palatal mucosa present and moist mucous membranes Teeth and gingiva: dentition normal Throat: Yes oropharynx normal Eyes Pupils: Equal, round and reactive pupils present and Pupil accommodation reflex normal EOM: EOMs intact bilaterally Neck Neck: Yes normal visual inspection, Yes no lymphadenopathy and Yes trachea midline Thyroid: Thyroid normal Carotids: no bruits Lymphatic: no lymphadenopathy noted Chest Chest palpation & inspection: normal inspection of the chest Resp Effort & Inspection: normal respiratory effort Auscultation: clear to auscultation bilaterally Cardio Rate: regular rate Rhythm: regular rhythm Heart sounds: S1 normal heart sound present, S2 normal heart sound present, no gallops, no murmurs and no rubs Bruits: no abdominal aortic bruits and no carotid bruits GI Palpation (GI): No Abdominal aortic bruit present, Soft to palpation, nontender, No hepatosplenomegaly present and No Rebound tenderness present Auscultation: normal bowel sounds General: Yes no CVA tenderness Back/Spine/Pelvis Back: no CVA tenderness Cervical Spine: cervical ROM normal and No Cervical spine tenderness Thoracic/Lumbar Spine: thoraco-lumbar ROM normal, No pain with thoraco-lumbar ROM, No thoracic spinal tenderness and No lumbar spinal tenderness Skin General: warm and dry. Normal skin color. Normal skin turgor Lesions: no lesions Rashes: no rashes Trauma: no lacerations or abrasions Wounds: no wounds Nails: normal Neuro General: patient oriented x3, gait normal and CN's II-XI intact bilaterally Cranial nerves: Yes Equal, round and reactive pupils present Cognition (Neuro): normal cognition Gait exam (Neuro): Normal gait present Motor exam (neuro): 5/5 motor strength present throughout Sensory Exam: No Sensory deficit (Neuro) Deep tendon reflexes (DTR's): Right patellar reflex intensity grade: 2+ and Left patellar reflex intensity grade: 2+ Extrem General: Yes normal to inspection, No edema and No calf tenderness Psych Appearance: grossly normal Affect: normal affect Attitude: cooperative Thought process: Normal thought process present Assessment and Plan Assessment & Plan (1) Normal physical exam: Code(s): Z00.00 - Encounter for general adult medical examination without abnormal findings Plan: No significant physical restrictions or limitations noted Continue current treatment regimen Healthy diet and routine exercise encouraged Follow-up in 2 months for diabetes and hypertension Return sooner with symptoms or concerns Verbalized understanding and agreed with the treatment plan Coding Level of Care Code Est Pt Prev Care >65y(78989) Diagnoses Normal physical exam Z00.00 Additional Codes SUZANNE-7 Assessment Billing - SUZANNE-7 Assessment Tool: SUZANNE-7 Assessment 82375 ([id number])
== END 2023-06-30 10:48 | disposition home or self-care (01) ==
PROVIDERS: PCP Nurse Practitioner Family; Visit Provider Nurse Practitioner Family
DX: Z00.00 Encounter for general adult medical examination without abnormal findings (principal)
CPT/HCPCS: 99397

== ENCOUNTER 2023-09-01 08:00 | Outpatient (AMB) | payer MEDICARE, SELFPAY ==
--- NOTE | 2023-09-01 08:08 | A.OFFPC_ITS ---
Vital Signs 09/01/23 08:10 09/01/23 08:17 Height 6 ft 1 in Weight 195 lb 4 oz BMI 25.8 BP 138/80 130/80 Blood Pressure Location Rt brachial Rt brachial Position Right Lateral Respiration 16 Pulse 79 Pulse Source Pulse Oximeter Pulse Oximetry (%) 98 Oxygen Delivery Method Room Air Intake Visit Reasons: 2 mos DM, HTN Intake Note: Follow up [employer] Required: No Allergies No Known Allergies Allergy (Verified 09/01/23 08:13) Medication List - Last Reconciled 09/01/23 by Heidy Loving CNP atorvastatin 20 mg PO DAILY hydrochlorothiazide 25 mg PO DAILY 90 days lisinopril 40 mg PO DAILY Tobacco use date assessed: 05/26/23 Dental Screening Dental Screen Date: 06/30/23 HPI HPI Comments History of Present Illness Details 73-year-old male presents for diabetes a nd hypertension follow-up He is on lisinopril, hydrochlorothiazide, and atorvastatin which he admits to taking as prescribed without adverse reactions His diabetes is well controlled without current medication management He offers no complaints and denies acute symptoms at this time He notes that 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 Brother No problems noted. Social History Housing: House Patient Tobacco Use Status: Never used Tobacco e-Cigarette/Vaping Use: Never Used service: No Current occupational status: retired Cognitive needs: No Hearing needs: No Vision needs: No Questionnaire Thrive Questionnaire Date Thrive assessed: 06/30/23 SUZANNE-7 AMB Questionnaire SUZANNE-7 Date SUZANNE - 7 assessed: 06/30/23 Source: Developed by Drs. Issa Reynolds, Autumn Wilson, Omi Carlin and colleagues, with an educational ewa from [employer]. Review of Systems Const Details: Const Denies chills, Denies fatigue, Denies fever(s), Denies headache(s) and Denies weakness ENT Denies dizziness and Denies headache(s) Card Denies chest pain, Denies lightheadedness, Denies dyspnea and Denies other (Palpitations) Resp Denies cough, Denies dyspnea, Denies wheezing and Denies other ( shortness of breath) GI Denies abdominal pain, Denies melena, Denies hematochezia, Denies change in bowel habits, Denies dyspepsia and Denies nausea Denies hematuria and Denies dysuria Musc Denies abnormal gait, Denies myalgias, Denies arthralgias, Denies numbness and Denies tingling Skin/Breast Denies rash, Denies unusual bruising and Denies wounds Neuro Denies abnormal gait, Denies dizziness, Denies headache(s), Denies memory loss, Denies numbness, Denies Sensory deficit (Neuro), Denies tingling and Denies weakness Psych Denies anxiety, Denies depression, Denies memory loss Endo Denies cold intolerance, Denies fatigue, Denies heat intolerance, Denies polydipsia and Denies polyuria Aller/Immun Denies wheezing Physical exam (Primary Care) Tobacco/Smoking Status: Tobacco use Status Tobacco use date assessed 05/26/23 06/30/23 10:18 Patient Tobacco Use Status Never used Tobacco 06/30/23 10:18 e-Cigarette/Vaping Use Never Used 06/30/23 10:18 Thrive Assessment: Date of Thrive Assessment Date Thrive assessed 06/30/23 06/30/23 10:18 Const Other: General: no acute distress and well developed Nutritional Appearance: well nourished Orientation/consciousness: [facility]: Yes normocephalic and Yes atraumatic Eyes General: appearance normal, both eyes and all related structures Pupils: Equal, round and reactive pupils present EOM: EOMs intact bilaterally Resp Effort & Inspection: normal respiratory effort Auscultation: clear to auscultation bilaterally Cardio Rate: regular rate Rhythm: regular rhythm Heart sounds: S1 normal heart sound present, S2 normal heart sound present, no gallops, no murmurs and no rubs GI Palpation (GI): No Abdominal aortic bruit present, Soft to palpation, nontender, No hepatosplenomegaly present and No Rebound tenderness present Auscultation: normal bowel sounds General: Yes no CVA tenderness Back/Spine/Pelvis Back: no CVA tenderness Cervical Spine: cervical ROM normal and No Cervical spine tenderness Thoracic/Lumbar Spine: thoraco-lumbar ROM normal, No pain with thoraco-lumbar ROM, No thoracic spinal tenderness and No lumbar spinal tenderness Extrem General: Yes normal to inspection, No edema and No calf tenderness Skin General: warm and dry. Normal skin color. Normal skin turgor Neuro General: patient oriented x3, gait normal and no focal neuro deficit Cranial nerves: Yes Equal, round and reactive pupils present Cognition (Neuro): normal cognition Gait exam (Neuro): Normal gait present Sensory Exam: No Sensory deficit (Neuro) Psych Appearance: grossly normal Affect: normal affect Attitude: cooperative Thought process: Normal thought process present Results AMB Hemoglobin A1c AMB Hemoglobin A1c 5.4 % Last Edit by Caron Reid CMA on 09/01/23 08:20 Assessment and Plan Assessment & Plan (1) Diabetes type 2, controlled: Code(s): E11.9 - Type 2 diabetes mellitus without complications Plan: A1c today is 5.4%, within goal of less than 7.0%. Previous A1c was 5.4% ADA diet, including low carbs such as rice, pasta, potato, bread, and routine exercise encouraged He had an eye exam with Dr. Sow in June. Will request record Encouraged to establish with Podiatry Follow-up in 3 months or return sooner with symptoms or concerns Verbalized understanding and agreed with treatment plan (2) Essential hypertension: Code(s): I10 - Essential (primary) hypertension Plan: Resting blood pressure is 130/80, slightly above goal of less than 130/80 Continue current treatment regimen Low-sodium diet encouraged Follow-up in 3 months Verbalized understanding and agreed with treatment plan Orders: Orders AMB Hemoglobin A1c Today E11.9 - Type 2 diabetes mellitus without complications Coding Level of Care Code Est Pt Level 4 (06486) Complex EM visit Add On G2211 Diagnoses Diabetes type 2, controlled E11.9 Essential hypertension I10
[2023-09-01 08:10] VITALS: BP 138/80; PULSE 79; RESP 16; O2SAT 98; BMI 25.8
[2023-09-01 08:17] VITALS: BP 130/80
== END 2023-09-01 08:30 | disposition home or self-care (01) ==
PROVIDERS: PCP Nurse Practitioner Family; Visit Provider Nurse Practitioner Family
DX: E11.9 Type 2 diabetes mellitus without complications (principal); I10 Essential (primary) hypertension
CPT/HCPCS: 83036; 99214; G2211

== ENCOUNTER 2023-12-09 09:01 | Outpatient (AMB) | payer MEDICARE, SELFPAY ==
--- NOTE | 2023-12-09 09:12 | MHC.PC.OV ---
Vital Signs 12/09/23 09:14 Height 6 ft 1 in Weight 197 lb 6 oz BMI 26.0 BP 120/80 Blood Pressure Location Lt brachial Position Sitting Respiration 16 Pulse 88 Pulse Source Pulse Oximeter Temp 98 F Temp Source Tympanic Pulse Oximetry (%) 96 Oxygen Delivery Method Room Air Intake Visit Reasons: 3 mos HTN, DM Intake Note: follow up for htn and a1c Allergies No Known Allergies Allergy (Verified 12/09/23 09:27) Medication List - Last Reconciled 12/09/23 by Heidy Loving CNP atorvastatin 20 mg PO DAILY hydrochlorothiazide 25 mg PO DAILY 90 days lisinopril 40 mg PO DAILY Tobacco use date assessed: 05/26/23 Dental Screening Dental Screen Date: 06/30/23 HPI HPI Comments History of Present Illness Details 73-year-old male presents for hypertension and diet-controlled diabetes follow-up He admits to taking his medications as prescribed without adverse reactions He notes that he has been making healthy dietary choices and exercising routinely He reports weak erection during sexual intercourse and requests Cialis which worked well before He denies acute symptoms at this time COUNTS INCLUDE 234 BEDS AT THE [facility] Medical History No pertinent past medical history Surgical History History of tonsillectomy and adenoidectomy Family History Father Colon cancer Mother H/O thyroidectomy Daughter In good health Daughter In good health Sister No problems noted. Brother No problems noted. Social History Housing: House Patient Tobacco Use Status: Never used Tobacco e-Cigarette/Vaping Use: Never Used service: No Current occupational status: retired Cognitive needs: No Hearing needs: No Vision needs: No Questionnaire Thrive Questionnaire Date Thrive assessed: 06/30/23 SUZANNE-7 AMB Questionnaire SUZANNE-7 Date SUZANNE - 7 assessed: 06/30/23 Source: Developed by Drs. Issa Reynolds, Autumn Wilson, Omi Carlin and colleagues, with an educational ewa from [employer]. Review of Systems Const Details: Const Denies chills, Denies fatigue, Denies fever(s), Denies headache(s) and Denies weakness ENT Denies dizziness and Denies headache(s) Card Denies chest pain, Denies lightheadedness, Denies dyspnea and Denies other (Palpitations) Resp Denies cough, Denies dyspnea, Denies wheezing and Denies other ( shortness of breath) GI Denies abdominal pain, Denies melena, Denies hematochezia, Denies change in bowel habits, Denies dyspepsia and Denies nausea Denies hematuria and Denies dysuria Musc Denies abnormal gait, Denies myalgias, Denies arthralgias, Denies numbness and Denies tingling Skin/Breast Denies rash, Denies unusual bruising and Denies wounds Neuro Denies abnormal gait, Denies dizziness, Denies headache(s), Denies memory loss, Denies numbness, Denies Sensory deficit (Neuro), Denies tingling and Denies weakness Psych Denies anxiety, Denies depression, Denies memory loss Endo Denies cold intolerance, Denies fatigue, Denies heat intolerance, Denies polydipsia and Denies polyuria Aller/Immun Denies wheezing Physical exam (Primary Care) Vital Signs: Last Vital Signs Temp 98 F 12/09/23 09:14 Pulse 88 12/09/23 09:14 Resp 16 12/09/23 09:14 BP 120/80 12/09/23 09:14 Pulse Ox 96 12/09/23 09:14 Oxygen Delivery Method Room Air 12/09/23 09:14 BMI result Body Mass Index 26.0 Tobacco/Smoking Status: Tobacco use Status Tobacco use date assessed 05/26/23 12/09/23 09:14 Patient Tobacco Use Status Never used Tobacco 12/09/23 09:14 e-Cigarette/Vaping Use Never Used 12/09/23 09:14 Thrive Assessment: Date of Thrive Assessment Date Thrive assessed 06/30/23 12/09/23 09:14 Const Other: General: no acute distress and well developed Nutritional Appearance: well nourished Orientation/consciousness: patient oriented x3 [facility] Head: Yes normocephalic and Yes atraumatic Eyes General: appearance normal, both eyes and all related structures Pupils: Equal, round and reactive pupils present EOM: EOMs intact bilaterally Resp Effort & Inspection: normal respiratory effort Auscultation: clear to auscultation bilaterally Cardio Rate: regular rate Rhythm: regular rhythm Heart sounds: S1 normal heart sound present, S2 normal heart sound present, no gallops, no murmurs and no rubs GI Palpation (GI): No Abdominal aortic bruit present, Soft to palpation, nontender, No hepatosplenomegaly present and No Rebound tenderness present Auscultation: normal bowel sounds General: Yes no CVA tenderness Back/Spine/Pelvis Back: no CVA tenderness Cervical Spine: cervical ROM normal and No Cervical spine tenderness Thoracic/Lumbar Spine: thoraco-lumbar ROM normal, No pain with thoraco-lumbar ROM, No thoracic spinal tenderness and No lumbar spinal tenderness Extrem General: Yes normal to inspection, No edema and No calf tenderness Skin General: warm and dry. Normal skin color. Normal skin turgor Neuro General: patient oriented x3, gait normal and no focal neuro deficit Cranial nerves: Yes Equal, round and reactive pupils present Cognition (Neuro): normal cognition Gait exam (Neuro): Normal gait present Sensory Exam: No Sensory deficit (Neuro) Psych Appearance: grossly normal Affect: normal affect Attitude: cooperative Thought process: Normal thought process present Results AMB Hemoglobin A1c AMB Hemoglobin A1c 5.9 % Last Edit by Gemini Lai CMA on 12/09/23 13:20 AMB Hemoglobin A1c previously reported as 5.8 Gemini Lai 12/09/23 13:20 Results Reviewed Results Reviewed: Laboratory Last Values Hgb A1c (Clinic) 5.9 % (4.0-6.0) 12/09/23 09:29 Assessment and Plan Assessment & Plan (1) Essential hypertension: Code(s): I10 - Essential (primary) hypertension Plan: Blood pressure today is 120/80, slightly above goal of less than 130/80 Continue current treatment regimen Low-sodium diet encouraged Follow-up in 3 months or sooner with symptoms or concerns Verbalized understanding and agreed with the treatment plan (2) Diabetes type 2, controlled: Code(s): E11.9 - Type 2 diabetes mellitus without complications Plan: A1c today is 5.9%, within goal of less than 7.0%. Previous A1c was 5.4% ADA diet and routine exercise encouraged Follow-up in 3 months Verbalized understanding and agreed with the treatment plan (3) Erectile dysfunction: Code(s): N52.9 - Male erectile dysfunction, unspecified Plan: Notes weak erection during sexual intercourse Tadalafil 5 mg daily as needed ordered. Advised to take as prescribed and not use more than 1 tab within 24 hours. Instructed on the risks, benefits, and potential adverse reactions of the medication Follow-up with symptoms or concerns Verbalized understanding and agreed with the treatment plan Orders: Orders AMB Hemoglobin A1c Today Z13.9 - Encounter for screening, unspecified Medications: New tadalafil administer approximately 30min before sexual activity; do not use more than 1 dose per 24hrs 5 mg PO DAILY PRN 10 tabs 0RF sexual activity Coding Level of Care Code Est Pt Level 4 (58474) Complex EM visit Add On G2211 Diagnoses Essential hypertension I10 Diabetes type 2, controlled E11.9 Erectile dysfunction N52.9
[2023-12-09 09:14] VITALS: BP 120/80; PULSE 88; RESP 16; TEMP 36.6; O2SAT 96; BMI 26.0
== END 2023-12-09 09:37 | disposition home or self-care (01) ==
PROVIDERS: PCP Nurse Practitioner Family
DX: I10 Essential (primary) hypertension (principal); E11.9 Type 2 diabetes mellitus without complications; N52.9 Male erectile dysfunction, unspecified; Z13.9 Encounter for screening, unspecified
CPT/HCPCS: 83036; 99214; G2211

== ENCOUNTER 2024-03-16 08:33 | Outpatient (AMB) | payer MEDICARE, SELFPAY ==
--- NOTE | 2024-03-16 08:44 | MHC.PC.OV ---
Vital Signs 03/16/24 08:49 Height 6 ft 1 in Weight 196 lb 8 oz BMI 25.9 BP 155/93 H Blood Pressure Location Rt brachial Position Sitting Respiration 16 Pulse 90 Pulse Source Pulse Oximeter Temp 97.5 F Temp Source Temporal Artery Scan Pulse Oximetry (%) 98 Oxygen Delivery Method Room Air Intake Visit Reasons: 3 mos HTN, DM Intake Note: patient here for folow up on HTN and DM Rotating Equipment Specialist Required: No Allergies No Known Allergies Allergy (Verified 03/16/24 08:53) Medication List - Last Reconciled 03/16/24 by Heidy Loving CNP atorvastatin 20 mg PO DAILY hydrochlorothiazide 25 mg PO DAILY 90 days lisinopril 40 mg PO DAILY tadalafil 5 mg PO DAILY PRN Tobacco use date assessed: 03/16/24 Fall risk assessment: No Falls in past year Last assessed Fall Risk: 03/16/24 Dental Screening Dental Screen Date: 03/16/24 Did you have a dental visit in the last 12 months?: Yes Did you have a dental problem in the last 6 months where you did not have access to dental care?: No Was dental information given to patient?: Patient has dentist HPI HPI Comments History of Present Illness Details The patient is a 74-year-old male presenting with hypertension and diabetes management. He reports that his blood pressure readings at home have been elevated over the past three days, with measurements ranging from 133/80 to 144/100 mmHg. The blood pressure typically peaks in the morning and declines throughout the day. The patient admits to occasionally forgetting his antihypertensive medication, noting that he missed his dose this morning. His prescribed medications for hypertension include Hydrochlorothiazide 25 mg daily, Lisinopril 40 mg daily, Atorvastatin 20 mg daily, and Tadalafil 5 mg as needed. At the clinic, his blood pressure was recorded as 155/93 mmHg. He acknowledges consuming a diet with potentially excessive salt. For diabetes, the patient reports no current issues, with an A1c level of 5.5%, improved from 5.9% three months prior. Social History - Reports adherence to a daily medication regimen with a weekly pill organizer, although admits to missing doses approximately once or twice monthly. - Consumes a diet with high salt intake, which may influence his blood pressure control. Results - Labs: Hemoglobin A1c 5.5% [facility] Medical History No pertinent past medical history Surgical History History of tonsillectomy and adenoidectomy Family History Father Colon cancer Mother H/O thyroidectomy Daughter In good health Daughter In good health Sister No problems noted. Brother No problems noted. Social History Housing: House Patient Tobacco Use Status: Never used Tobacco e-Cigarette/Vaping Use: Never Used service: No Current occupational status: retired Cognitive needs: No Hearing needs: No Vision needs: No Questionnaire PHQ-9 Over the last 2 weeks, how often have you been bothered by any of the following problems? 1. Little interest or pleasure in doing things: not at all 2. Feeling down, depressed, or hopeless: not at all 3. Trouble falling or staying asleep, or sleeping too much: not at all 4. Feeling tired or having little energy: not at all 5. Poor appetite or overeating: not at all 6. Feeling bad about yourself - or that you are a failure or have let yourself or your family down: not at all 7. Trouble concentrating on things, such as reading the newspaper or watching television: not at all 8. Moving or speaking so slowly that other people could have noticed. Or the opposite - being so fidgety or restless that you have been moving around a lot more than usual: not at all Depression Screening Interpretation: Negative Depression Screening Done: Yes Source: Developed by Drs. Issa Reynolds, Autumn Wilson, Omi Carlin and colleagues, with an educational ewa from [employer]. Thrive Questionnaire Date Thrive assessed: 03/16/24 I am a: Patient What is your living situation today?: I have a steady place to live Within the past 12 months, did the food you bought not last and you didn't have the money to get more?: Never true Within the past 12 months, did you worry whether your food would run out before you got money to buy more?: I choose not to answer this question Do you have trouble paying for medicines?: I choose not to answer this question Do you have trouble getting transportation to medical appointments?: I choose not to answer this question Do you have trouble paying your heating and electricity bill?: I choose not to answer this question Do you have trouble taking care of your child, family member or friend?: I choose not to answer this question Do you have trouble with day-to-day activities such as bathing, preparing meals, shopping, managing finances, etc.?: I choose not to answer this question Are you currently unemployed and looking for a job?: I choose not to answer this question Are you interested in more education?: I choose not to answer this question Please select the resources that you would like help with: None Currently or been in a relationship where the following occur: I choose not to answer THRIVE Score: 0 AUDIT C Alcohol Use Questionnaire (AUDIT-C) 1. How often do you have a drink containing alcohol?: 2-3 times a week 2. How many drinks containing alcohol do you have on a typical day when you are drinking?: 3 or 4 3. How often do you have six or more drinks on one occasion?: Less than monthly Total Score: 5 Score Reviewed/Action Taken: Yes SUZANNE-7 AMB Questionnaire SUZANNE-7 Date SUZANNE - 7 assessed: 03/16/24 Feeling nervous, anxious, or on edge: 0 = Not at all Not being able to stop or control worryin = Not at all Worrying too much about different things: 0 = Not at all Trouble relaxin = Not at all Being so restless that it is hard to sit still: 0 = Not at all Becoming easily annoyed or irritable: 0 = Not at all Feeling afraid as if something awful might happen: 0 = Not at all Total SUZANNE-7 score (0-4 normal; 5-9 mild; 10-14 moderate; 15-21 severe): 0 Source: Developed by Drs. Issa Reynolds, Autumn Wilson, Omi Carlin and colleagues, with an educational ewa from [employer]. Review of Systems Const Details: Const Denies chills, Denies fatigue, Denies fever(s), Denies headache(s) and Denies weakness ENT Denies dizziness and Denies headache(s) Card Denies chest pain, Denies lightheadedness, Denies dyspnea and Denies other (Palpitations) Resp Denies cough, Denies dyspnea, Denies wheezing and Denies other ( shortness of breath) GI Denies abdominal pain, Denies melena, Denies hematochezia, Denies change in bowel habits, Denies dyspepsia and Denies nausea Denies hematuria and Denies dysuria Musc Denies abnormal gait, Denies myalgias, Denies arthralgias, Denies numbness and Denies tingling Skin/Breast Denies rash, Denies unusual bruising and Denies wounds Neuro Denies abnormal gait, Denies dizziness, Denies headache(s), Denies memory loss, Denies numbness, Denies Sensory deficit (Neuro), Denies tingling and Denies weakness Psych Denies anxiety, Denies depression, Denies memory loss Endo Denies cold intolerance, Denies fatigue, Denies heat intolerance, Denies polydipsia and Denies polyuria Aller/Immun Denies wheezing Physical exam (Primary Care) Vital Signs: Last Vital Signs Temp 97.5 F 03/16/24 08:49 Pulse 90 03/16/24 08:49 Resp 16 03/16/24 08:49 BP 155/93 H 03/16/24 08:49 Pulse Ox 98 03/16/24 08:49 Oxygen Delivery Method Room Air 03/16/24 08:49 BMI result Body Mass Index 25.9 Tobacco/Smoking Status: Tobacco use Status Tobacco use date assessed 03/16/24 03/16/24 08:53 Patient Tobacco Use Status Never used Tobacco 03/16/24 08:47 e-Cigarette/Vaping Use Never Used 03/16/24 08:47 Depression Screening Interpretation: Negative Thrive Assessment: Date of Thrive Assessment Date Thrive assessed 03/16/24 03/16/24 08:53 Currently or been in a relationship where the following occur: I choose not to answer Const Other: General: no acute distress and well developed Nutritional Appearance: well nourished Orientation/consciousness: patient oriented x3 HENMT Head: Yes normocephalic and Yes atraumatic Eyes General: appearance normal, both eyes and all related structures Pupils: Equal, round and reactive pupils present EOM: EOMs intact bilaterally Resp Effort & Inspection: normal respiratory effort Auscultation: clear to auscultation bilaterally Cardio Rate: regular rate Rhythm: regular rhythm Heart sounds: S1 normal heart sound present, S2 normal heart sound present, no gallops, no murmurs and no rubs GI Palpation (GI): No Abdominal aortic bruit present, Soft to palpation, nontender, No hepatosplenomegaly present and No Rebound tenderness present Auscultation: normal bowel sounds General: Yes no CVA tenderness Back/Spine/Pelvis Back: no CVA tenderness Extrem General: Yes normal to inspection, No edema and No calf tenderness Skin General: warm and dry. Normal skin color. Normal skin turgor Neuro General: patient oriented x3, gait normal and no focal neuro deficit Cranial nerves: Yes Equal, round and reactive pupils present Cognition (Neuro): normal cognition Gait exam (Neuro): Normal gait present Sensory Exam: No Sensory deficit (Neuro) Psych Appearance: grossly normal Affect: normal affect Attitude: cooperative Thought process: Normal thought process present Results AMB Hemoglobin A1c AMB Hemoglobin A1c 5.5 % Last Edit by Kymberly Moncada on 03/16/24 09:18 Results Reviewed Results Reviewed: Laboratory Last Values Hgb A1c (Clinic) 5.5 % (4.0-6.0) 03/16/24 08:47 Coding Level of Care Code Est Pt Level 4 (18416) Diagnoses Diabetes type 2, controlled E11.9 Essential hypertension I10 Assessment & Plan Assessment & Plan (1) Diabetes type 2, controlled: Code(s): E11.9 - Type 2 diabetes mellitus without complications Category: Medical Plan: Continue current management regimen. Continue regular monitoring of blood glucose levels. No medication changes are needed at this time due to well-controlled A1c levels. (2) Essential hypertension: Code(s): I10 - Essential (primary) hypertension Category: Medical Plan: Advise patient to take medication consistently every morning to manage blood pressure effectively. Emphasize the importance of adhering to a low-sodium diet to aid in controlling blood pressure. Schedule a follow-up appointment in one week to monitor changes and response to adherence to lifestyle modifications. Plan I discussed with the patient the need for strict adherence to his antihypertensive medication and emphasized the impact of a low-sodium diet on blood pressure control. I informed him that missing doses could result in inaccurate assessments of his true blood pressure levels. We agreed to evaluate his blood pressure again in one week to ascertain any changes following consistent medication and lifestyle modification adherence. I reviewed his current diabetes management, noting the satisfactory hemoglobin A1c levels, and encouraged him to maintain his current regimen. The potential risks of poorly controlled hypertension and benefits of lifestyle changes were also discussed. I reiterated the significance of reporting any concerning symptoms like headaches, visual disturbances, or chest pain promptly. Orders: Orders Lipid Panel Today E78.5 - Hyperlipidemia, unspecified AMB Hemoglobin A1c Today Z13.9 - Encounter for screening, unspecified Microalbumin, Random (w Creat) Today E11.9 - Type 2 diabetes mellitus without complications Medications: Refilled tadalafil administer approximately 30min before sexual activity; do not use more than 1 dose per 24hrs 5 mg PO DAILY PRN 10 tabs 0RF sexual activity Patient Instructions: - Take prescribed antihypertensive medication daily in the morning without fail. - Reduce salt intake significantly to assist in controlling blood pressure. - Return for a blood pressure follow-up in one week. - Report any new symptoms such as headaches, visual disturbances, or chest pain immediately. - Continue current diabetes management and monitoring efforts. Patient was informed and verbally consented to the use of an ambient scribe for clinic note documentation during this visit.
[2024-03-16 08:49] VITALS: BP 155/93; PULSE 90; RESP 16; TEMP 36.4; O2SAT 98; BMI 25.9
== END 2024-03-16 09:08 | disposition home or self-care (01) ==
PROVIDERS: PCP Nurse Practitioner Family; Visit Provider Nurse Practitioner Family
DX: E11.9 Type 2 diabetes mellitus without complications (principal); I10 Essential (primary) hypertension; Z13.9 Encounter for screening, unspecified

== ENCOUNTER → 2024-03-16 08:33 | Outpatient (BNVA) | payer MEDICARE, SELFPAY | PROVIDERS: PCP Nurse Practitioner Family; Visit Provider Nurse Practitioner Family | DX: E11.9 Type 2 diabetes mellitus without complications (principal); I10 Essential (primary) hypertension | CPT/HCPCS: 83036; 99212 ==

== ENCOUNTER 2024-03-23 12:29 | Outpatient (AMB) | payer MEDICARE, SELFPAY ==
--- NOTE | 2024-03-23 12:35 | MHC.PC.OV ---
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 The patient reports that his blood pressure readings are consistently higher when taken in the medical office compared to measurements taken at home, suggesting possible white coat hypertension. At home, his blood pressures range from 120 to 141 systolic and 74 to 86 diastolic, whereas his initial reading in the office today was 163/88 mmHg. The patient has a history of hypertension and is currently prescribed hydrochlorothiazide and lisinopril, which he takes in the morning. He maintains a low-salt diet but reports variability in his adherence to this diet. The patient also has a history of diabetes mellitus, which necessitates a more stringent blood pressure control target. He describes being more relaxed at home and regularly checks his blood pressure using a home cuff. Social History - Substance Use: The patient consumes alcohol, specifically two to three beers per day. He notes these beers are of lower alcohol content, approximately 4%. - Dietary Habits: He is attempting a low-salt diet by avoiding the addition of salt to food but has expressed a need to explore food options with inherently low sodium content. [facility] Medical History No pertinent past medical history Surgical History History of tonsillectomy and adenoidectomy Family History Father Colon cancer Mother H/O thyroidectomy Daughter In good health Daughter In good health Sister No problems noted. Brother No problems noted. Social History Housing: House Patient Tobacco Use Status: Never used Tobacco e-Cigarette/Vaping Use: Never Used service: No Current occupational status: retired Cognitive needs: No Hearing needs: No Vision needs: No Questionnaire PHQ-9 Over the last 2 weeks, how often have you been bothered by any of the following problems? 9. Thoughts that you would be better off or of hurting yourself in some way: not at all Source: Developed by Drs. Issa Reynolds, Autumn Wilson, Omi Carlin and colleagues, with an educational ewa from [employer]. Thrive Questionnaire Date Thrive assessed: 03/16/24 I am a: Patient What is your living situation today?: I have a steady place to live Within the past 12 months, did the food you bought not last and you didn't have the money to get more?: Never true Within the past 12 months, did you worry whether your food would run out before you got money to buy more?: I choose not to answer this question Do you have trouble paying for medicines?: I choose not to answer this question Do you have trouble getting transportation to medical appointments?: I choose not to answer this question Do you have trouble paying your heating and electricity bill?: I choose not to answer this question Do you have trouble taking care of your child, family member or friend?: I choose not to answer this question Do you have trouble with day-to-day activities such as bathing, preparing meals, shopping, managing finances, etc.?: I choose not to answer this question Are you currently unemployed and looking for a job?: I choose not to answer this question Are you interested in more education?: I choose not to answer this question Please select the resources that you would like help with: None Currently or been in a relationship where the following occur: I choose not to answer THRIVE Score: 0 SUZANNE-7 AMB Questionnaire SUZANNE-7 Date SUZANNE - 7 assessed: 03/16/24 Source: Developed by Drs. Issa Reynolds, Autumn Wilson, Omi Carlin and colleagues, with an educational ewa from [employer]. Review of Systems Const Details: Const Denies chills, Denies fatigue, Denies fever(s), Denies headache(s) and Denies weakness ENT Denies dizziness and Denies headache(s) Card Denies chest pain, Denies lightheadedness, Denies dyspnea and Denies other (Palpitations) Resp Denies cough, Denies dyspnea, Denies wheezing and Denies other ( shortness of breath) GI Denies abdominal pain, Denies melena, Denies hematochezia, Denies change in bowel habits, Denies dyspepsia and Denies nausea Denies hematuria and Denies dysuria Musc Denies abnormal gait, Denies myalgias, Denies arthralgias, Denies numbness and Denies tingling Skin/Breast Denies rash, Denies unusual bruising and Denies wounds Neuro Denies abnormal gait, Denies dizziness, Denies headache(s), Denies memory loss, Denies numbness, Denies Sensory deficit (Neuro), Denies tingling and Denies weakness Psych Denies anxiety, Denies depression, Denies memory loss Endo Denies cold intolerance, Denies fatigue, Denies heat intolerance, Denies polydipsia and Denies polyuria Aller/Immun Denies wheezing Physical exam (Primary Care) Vital Signs: Last Vital Signs Temp 97.9 F 03/23/24 12:51 Pulse 85 03/23/24 12:51 Resp 16 03/23/24 12:51 BP 163/88 H 03/23/24 12:51 Pulse Ox 97 03/23/24 12:51 Oxygen Delivery Method Room Air 03/23/24 12:51 BMI result Body Mass Index 25.8 Tobacco/Smoking Status: Tobacco use Status Tobacco use date assessed 03/23/24 03/23/24 12:55 Patient Tobacco Use Status Never used Tobacco 03/23/24 12:38 e-Cigarette/Vaping Use Never Used 03/23/24 12:38 Thrive Assessment: Date of Thrive Assessment Date Thrive assessed 03/16/24 03/23/24 12:38 Currently or been in a relationship where the following occur: I choose not to answer Const Other: General: no acute distress and well developed Nutritional Appearance: well nourished Orientation/consciousness: patient oriented x3 [facility] Head: Yes normocephalic and Yes atraumatic Eyes General: appearance normal, both eyes and all related structures Pupils: Equal, round and reactive pupils present EOM: EOMs intact bilaterally Resp Effort & Inspection: normal respiratory effort Auscultation: clear to auscultation bilaterally Cardio Rate: regular rate Rhythm: regular rhythm Heart sounds: S1 normal heart sound present, S2 normal heart sound present, no gallops, no murmurs and no rubs GI Palpation (GI): No Abdominal aortic bruit present, Soft to palpation, nontender, No hepatosplenomegaly present and No Rebound tenderness present Auscultation: normal bowel sounds General: Yes no CVA tenderness Back/Spine/Pelvis Back: no CVA tenderness Cervical Spine: cervical ROM normal and No Cervical spine tenderness Thoracic/Lumbar Spine: thoraco-lumbar ROM normal, No pain with thoraco-lumbar ROM, No thoracic spinal tenderness and No lumbar spinal tenderness Extrem General: Yes normal to inspection, No edema and No calf tenderness Skin General: warm and dry. Normal skin color. Normal skin turgor Neuro General: patient oriented x3, gait normal and no focal neuro deficit Cranial nerves: Yes Equal, round and reactive pupils present Cognition (Neuro): normal cognition Gait exam (Neuro): Normal gait present Sensory Exam: No Sensory deficit (Neuro) Psych Appearance: grossly normal Affect: normal affect Attitude: cooperative Thought process: Normal thought process present Coding Level of Care Code Est Pt Level 4 (42377) Diagnoses Essential hypertension I10 Diabetes type 2, controlled E11.9 Assessment & Plan Assessment & Plan (1) Essential hypertension: Code(s): I10 - Essential (primary) hypertension Category: Medical Plan: - Continue current treatment regimen. - Encourage further dietary sodium reduction. - Limit alcohol intake to a maximum of seven drinks per week. - We will monitor home blood pressure readings three times per week (Friday, Friday, Friday) both in the morning and evening for four weeks. (2) Diabetes type 2, controlled: Code(s): E11.9 - Type 2 diabetes mellitus without complications Category: Medical Plan: Ensure blood pressure target remains under 130/80 mmHg to enhance renal protection. Plan I discussed the importance of controlling hypertension and how it can be influenced by diet and lifestyle factors, including alcohol consumption. The patient was advised to continue his current antihypertensive regimen without changes. We discussed the concept of white coat hypertension and the benefits of home monitoring to achieve a more accurate assessment of his overall blood pressure control. Additionally, I highlighted the goal of maintaining blood pressure below 130/80 mmHg due to his diagnosis of diabetes, with emphasis on protecting renal function. The patient agreed to reduce alcohol intake and monitor blood pressure at home. A follow-up appointment was scheduled in one month to evaluate blood pressure trends and overall management effectiveness. Patient Instructions: - Take medications as prescribed without changes. - Continue attempting a low-sodium diet in general. - Limit alcohol intake to seven drinks per week. - Monitor and record blood pressure at home three times weekly in both morning and evening. - Return for follow-up in one month or sooner if experiencing symptoms such as headache or chest pain. Patient was informed and verbally consented to the use of an ambient scribe for clinic note documentation during this visit.
[2024-03-23 12:51] VITALS: BP 163/88; PULSE 85; RESP 16; TEMP 36.6; O2SAT 97; BMI 25.8
[2024-03-23 13:15] VITALS: BP 140/90
--- OUTSIDE RECORDS SUMMARY | 2024-03-30 13:46 | XMS_ITS | Patient Health Record ---
[facility] Organization [facility] Address [address] [place] [id number] Care Team Providers Care Digital Operations Analyst Name Role Phone LON GRIFFIN NP Primary Care Provider Issa Del Toro Unavailable [phone] ALLERGIES No Known Allergies REASON FOR REFERRAL No Information MEDICATIONS Medication SIG (Take, Route, Frequency, Duration) Notes Start Date End Date Status Lisinopril Active hydroCHLOROthiazide 25 MG 1 tablet in th e morning Orally Once a day for 30 day(s) Active Atorvastatin Calcium Active metFORMIN HCl 500 MG 1 tablet with a noé l Orally Once a day for 30 day(s) Active IMMUNIZATIONS Vaccine Route Administration Date Status Comme nts Influenza Unknown 03/07/2021 Administered SOCIAL HISTORY Sex Assigned At : Social History Observation Description Sex Assigned At Unknown PROBLEMS Problem Type ICD Code Onset Dates Problem Status W/U Status Risk SNOMED Code Notes Problem Encounter for screening for malignant neoplasm of colon (Z12.11) Active confirmed 942116184 Problem Encounter for screening for malignant neoplasm of rectum (Z12.12) Active confirmed Screening fo r malignant neoplasm of rectum (471251363) Problem History of adenomatous polyp of colon (Z86.010) Active confirmed 042914969 Problem Family history of colon cancer (Z80.0) Active confirmed 527790362 Problem Preprocedural examination (Z01.818) Active confirmed 66828693 Problem Diverticulosis of colon (K57.30) Active confirmed Diverticulosi s of colon (168369723) PLAN OF TREATMENT Future Test Test Name Order Date COLONOSCOPY 11/01/2015 COLONOSCOPY 08/17/2021 Insurance Providers Payer Name Payer Address Payer Phone Subscriber Number Group Number Insured Name Patient Relationship to Insured Coverage Start Date Coverage End Date [facility] [address] [place], [place] [id number] LEXIE PINON Self - patient is the insured MEDICAL (GENERAL) HISTORY Medical History History ICD Code Screening colonoscopy in 200 5 was negative other than hyperplastic polyp; colonoscopy on 07-09-2010 revealed a small tubular adenoma that was removed, as well as some sigmoid diverticulosis and small internal hemorrhoids Denies [place],CVA,Lung disease,renal disease HTN Hyperlipidemia NIDDM Colonoscopy 02/2016 with a tubular adeno ma removed Surgical History Surgery Date(Month/Year) Tonsillectomy
== END 2024-03-23 13:23 | disposition home or self-care (01) ==
PROVIDERS: PCP Nurse Practitioner Family; Visit Provider Nurse Practitioner Family
DX: I10 Essential (primary) hypertension (principal); E11.9 Type 2 diabetes mellitus without complications

== ENCOUNTER → 2024-03-23 12:29 | Outpatient (BNVA) | payer MEDICARE, SELFPAY | PROVIDERS: PCP Nurse Practitioner Family; Visit Provider Nurse Practitioner Family | DX: I10 Essential (primary) hypertension (principal); E11.9 Type 2 diabetes mellitus without complications | CPT/HCPCS: 99212 ==

== ENCOUNTER 2024-04-26 09:18 | Outpatient (AMB) | payer MEDICARE, SELFPAY ==
--- NOTE | 2024-04-26 09:24 | MHC.PC.OV ---
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: No Allergies No Known Allergies Allergy (Verified 04/26/24 09:30) Medication List - Last Reconciled 04/26/24 by Heidy Loving CNP atorvastatin 20 mg PO DAILY hydrochlorothiazide 25 mg PO DAILY 90 days lisinopril 40 mg PO DAILY tadalafil 5 mg PO DAILY PRN Tobacco use date assessed: 04/26/24 Fall risk assessment: No Falls in past year Last assessed Fall Risk: 04/26/24 Dental Screening Dental Screen Date: 04/26/24 Did you have a dental visit in the last 12 months?: Yes Did you have a dental problem in the last 6 months where you did not have access to dental care?: No Was dental information given to patient?: Patient has dentist HPI HPI Comments History of Present Illness Details 74-year-old male presents hypertension. He admits to taking his medications prescribed without adverse reactions. He has been maintaining low-sodium diet. His home blood pressure readings in the past one week average between 113-135/56-82. He has not cut back on drinking. He continues to drink 2-3 beers 3-4 times weekly. He offers no complaints and denies acute symptoms at this time. [facility] Medical History No pertinent past medical history Surgical History History of tonsillectomy and adenoidectomy Family History Father Colon cancer Mother H/O thyroidectomy Daughter In good health Daughter In good health Sister No problems noted. Brother No problems noted. Social History Housing: House Patient Tobacco Use Status: Never used Tobacco e-Cigarette/Vaping Use: Never Used service: No Current occupational status: retired Cognitive needs: No Hearing needs: No Vision needs: No Questionnaire PHQ-9 Over the last 2 weeks, how often have you been bothered by any of the following problems? 1. Little interest or pleasure in doing things: not at all 2. Feeling down, depressed, or hopeless: not at all 3. Trouble falling or staying asleep, or sleeping too much: not at all 4. Feeling tired or having little energy: not at all 5. Poor appetite or overeating: not at all 6. Feeling bad about yourself - or that you are a failure or have let yourself or your family down: not at all 7. Trouble concentrating on things, such as reading the newspaper or watching television: not at all 8. Moving or speaking so slowly that other people could have noticed. Or the opposite - being so fidgety or restless that you have been moving around a lot more than usual: not at all 9. Thoughts that you would be better off or of hurting yourself in some way: not at all Total score: 0 Depression Screening Interpretation: Negative Depression Screening Done: Yes Source: Developed by Drs. Issa Reynolds, Autumn Wilson, Omi Carlin and colleagues, with an educational ewa from [employer]. Thrive Questionnaire Date Thrive assessed: 03/16/24 I am a: Patient What is your living situation today?: I have a steady place to live Within the past 12 months, did the food you bought not last and you didn't have the money to get more?: Never true Within the past 12 months, did you worry whether your food would run out before you got money to buy more?: Never true Do you have trouble paying for medicines?: No Do you have trouble getting transportation to medical appointments?: No Do you have trouble paying your heating and electricity bill?: No Do you have trouble taking care of your child, family member or friend?: No Do you have trouble with day-to-day activities such as bathing, preparing meals, shopping, managing finances, etc.?: No Are you currently unemployed and looking for a job?: No Are you interested in more education?: No Please select the resources that you would like help with: None Currently or been in a relationship where the following occur: No concerns reported THRIVE Score: 0 AUDIT C Alcohol Use Questionnaire (AUDIT-C) 1. How often do you have a drink containing alcohol?: 2-3 times a week 2. How many drinks containing alcohol do you have on a typical day when you are drinking?: 3 or 4 3. How often do you have six or more drinks on one occasion?: Monthly Total Score: 6 SUZANNE-7 AMB Questionnaire SUZANNE-7 Date SUZANNE - 7 assessed: 03/16/24 Feeling nervous, anxious, or on edge: 0 = Not at all Not being able to stop or control worryin = Not at all Worrying too much about different things: 0 = Not at all Trouble relaxin = Not at all Being so restless that it is hard to sit still: 0 = Not at all Becoming easily annoyed or irritable: 0 = Not at all Feeling afraid as if something awful might happen: 0 = Not at all Total SUZANNE-7 score (0-4 normal; 5-9 mild; 10-14 moderate; 15-21 severe): 0 Source: Developed by Drs. Issa Reynolds, Autumn Wilson, Omi Carlin and colleagues, with an educational ewa from [employer]. Review of Systems Const Details: Const Denies chills, Denies fatigue, Denies fever(s), Denies headache(s) and Denies weakness ENT Denies dizziness and Denies headache(s) Card Denies chest pain, Denies lightheadedness, Denies dyspnea and Denies other (Palpitations) Resp Denies cough, Denies dyspnea, Denies wheezing and Denies other ( shortness of breath) GI Denies abdominal pain, Denies melena, Denies hematochezia, Denies change in bowel habits, Denies dyspepsia and Denies nausea Denies hematuria and Denies dysuria Musc Denies abnormal gait, Denies myalgias, Denies arthralgias, Denies numbness and Denies tingling Skin/Breast Denies rash, Denies unusual bruising and Denies wounds Neuro Denies abnormal gait, Denies dizziness, Denies headache(s), Denies memory loss, Denies numbness, Denies Sensory deficit (Neuro), Denies tingling and Denies weakness Psych Denies anxiety, Denies depression, Denies memory loss Endo Denies cold intolerance, Denies fatigue, Denies heat intolerance, Denies polydipsia and Denies polyuria Aller/Immun Denies wheezing Physical exam (Primary Care) Tobacco/Smoking Status: Tobacco use Status Tobacco use date assessed 03/23/24 03/23/24 12:55 Patient Tobacco Use Status Never used Tobacco 03/23/24 12:38 e-Cigarette/Vaping Use Never Used 03/23/24 12:38 Depression Screening Interpretation: Negative Thrive Assessment: Date of Thrive Assessment Date Thrive assessed 03/16/24 03/23/24 12:38 Currently or been in a relationship where the following occur: No concerns reported Const Other: General: no acute distress and well developed Nutritional Appearance: well nourished Orientation/consciousness: patient oriented x3 HENMT Head: Yes normocephalic and Yes atraumatic Eyes General: appearance normal, both eyes and all related structures Pupils: Equal, round and reactive pupils present EOM: EOMs intact bilaterally Resp Effort & Inspection: normal respiratory effort Auscultation: clear to auscultation bilaterally Cardio Rate: regular rate Rhythm: regular rhythm Heart sounds: S1 normal heart sound present, S2 normal heart sound present, no gallops, no murmurs and no rubs GI Palpation (GI): No Abdominal aortic bruit present, Soft to palpation, nontender, No hepatosplenomegaly present and No Rebound tenderness present Auscultation: normal bowel sounds General: Yes no CVA tenderness Back/Spine/Pelvis Back: no CVA tenderness Cervical Spine: cervical ROM normal and No Cervical spine tenderness Thoracic/Lumbar Spine: thoraco-lumbar ROM normal, No pain with thoraco-lumbar ROM, No thoracic spinal tenderness and No lumbar spinal tenderness Extrem General: Yes normal to inspection, No edema and No calf tenderness Skin General: warm and dry. Normal skin color. Normal skin turgor Neuro General: patient oriented x3, gait normal and no focal neuro deficit Cranial nerves: Yes Equal, round and reactive pupils present Cognition (Neuro): normal cognition Gait exam (Neuro): Normal gait present Sensory Exam: No Sensory deficit (Neuro) Psych Appearance: grossly normal Affect: normal affect Attitude: cooperative Thought process: Normal thought process present Coding Level of Care Code Est Pt Level 3 (29536) Diagnoses Essential hypertension I10 Laboratory tests ordered as part of a complete physical exam (CPE) Z00.00 Assessment & Plan Assessment & Plan (1) Essential hypertension: Code(s): I10 - Essential (primary) hypertension Category: Medical Plan: Resting blood pressure is 126/80, slightly above goal of less than 130/80. Continue current treatment regimen. Low-sodium diet encouraged. Encouraged to cut down on alcohol intake. Perform fasting lab work, fast for 10-12 hours, may drink water, before next visit. Follow-up on or after 06/29/2024 for an extended physical exam or sooner with symptoms or concerns. Verbalized understanding and agreed with treatment plan. (2) Laboratory tests ordered as part of a complete physical exam (CPE): Code(s): Z00.00 - Encounter for general adult medical examination without abnormal findings Category: Medical Plan: Fasting labs ordered as part of a complete physical exam. Advised to fast for at least 10 hours before getting labs drawn. May drink water Verbalized understanding and agreed with treatment plan. Orders: Orders Complete Blood Count Auto Diff 2 Months Z00.00 - Encounter for general adult medical examination without abnormal findings Comprehensive [place]. Panel Fast 2 Months Z00.00 - Encounter for general adult medical examination without abnormal findings Lipid Panel 2 Months Z00.00 - Encounter for general adult medical examination without abnormal findings TSH reflex Free T4 2 Months Z00.00 - Encounter for general adult medical examination without abnormal findings PSA, Ultra Sensitive 2 Months Z00.00 - Encounter for general adult medical examination without abnormal findings UA CC w/rflx Micro + Cult 2 Months Z00.00 - Encounter for general adult medical examination without abnormal findings Microalbumin, Random (w Creat) 2 Months Z00.00 - Encounter for general adult medical examination without abnormal findings
[2024-04-26 09:25] VITALS: BP 138/91; PULSE 90; RESP 16; TEMP 36.4; O2SAT 98; BMI 26.4
[2024-04-26 09:39] VITALS: BP 126/80
--- OUTSIDE RECORDS SUMMARY | 2024-04-26 09:46 | XMS_ITS | Patient Health Record ---
Author Organization [facility] Address [address] [place] [address] Care Team Providers Care Weigher Alloy Name Role Phone LON GRIFFIN NP Primary Care Provider Issa Del Toro Unavailable [phone] ALLERGIES No Known Allergies REASON FOR REFERRAL [...] malignant neoplasm of colon (Z12.11) Active confirmed 632333616 Problem Encounter for screening for malignant neoplasm of rectum (Z12.12) Active confirmed Screening fo r malignant neoplasm of rectum (528292825) Problem History of adenomatous polyp of colon (Z86.010) Active confirmed 356930311 Problem Family history of colon cancer (Z80.0) Active confirmed 270586175 Problem Preprocedural examination (Z01.818) Active confirmed 88426246 Problem Diverticulosis of colon (K57.30) Active confirmed Diverticulosi s of colon (610707751) PLAN OF TREATMENT Future Test Test Name Order Date COLONOSCOPY 11/01/2015 COLONOSCOPY 08/17/2021 Insurance Providers Payer Name Payer Address Payer Phone Subscriber Number Group Number Insured Name Patient Relationship to Insured Coverage Start Date Coverage End Date [facility] [address] [place], [place] [id number] LEXIE PINON Self - patient is the insured MEDICAL (GENERAL) HISTORY Medical History History ICD Code Screening colonoscopy in 200 5 was negative other than hyperplastic polyp; colonoscopy on 07-09-2010 revealed a small tubular adenoma that was removed, as well as some sigmoid diverticulosis and small internal hemorrhoids Denies [place],CVA,Lung disease,renal disease HTN Hyperlipidemia NIDDM Colonoscopy 02/2016 with a tubular adeno ma removed Surgical History Surgery Date(Month/Year) Tonsillectomy
== END 2024-04-26 09:46 | disposition home or self-care (01) ==
PROVIDERS: PCP Nurse Practitioner Family; Visit Provider Nurse Practitioner Family
DX: I10 Essential (primary) hypertension (principal); Z00.00 Encounter for general adult medical examination without abnormal findings

== ENCOUNTER → 2024-04-26 09:18 | Outpatient (BNVA) | payer MEDICARE, SELFPAY | PROVIDERS: PCP Nurse Practitioner Family; Visit Provider Nurse Practitioner Family | DX: Z00.00 Encounter for general adult medical examination without abnormal findings (principal); I10 Essential (primary) hypertension | CPT/HCPCS: 99212 ==

== ENCOUNTER 2024-06-25 08:31 | Outpatient (REF) | payer MEDICARE, SELFPAY ==
--- OUTSIDE RECORDS SUMMARY | 2024-06-25 09:01 | XMS_ITS | Patient Health Record ---
Author Organization [facility] Address [address] [place] [address] Care Team Providers Care Assistant Winemaker Name Role Phone LON GRIFFIN NP Primary Care Provider Issa Del Toro Unavailable [phone] Allergies No Known Allergies Reason For Referral No Information Medications Medication SIG (Take, Route, Frequency, Duration) Notes Start Date End Date Status Lisinopril Active hydroCHLOROthiazide 25 MG 1 tablet in th e morning Orally Once a day for 30 day(s) Active Atorvastatin Calcium Active metFORMIN HCl 500 MG 1 tablet with a noé l Orally Once a day for 30 day(s) Active Immunizations Vaccine Route Administration Date Status Comme nts Influenza Unknown 03/07/2021 Administered Problems Problem Type SNOMED Code ICD Code Onset Dates Problem Status W/U Status Risk Notes Problem 614935103 Encounter for screening for malignant neoplasm of colon (Z12.11) Active confirmed Problem 151614879 History of adenomatous polyp of colon (Z86.010) Active confirmed Problem Screening for malignant neoplasm of rectum (757152587) Encounter for screening for malignant neoplasm of rectum (Z12.12) Active confirmed Problem 47799327 Preprocedural examination (Z01.818) Active confirmed Problem 872847595 Family history o f colon cancer (Z80.0) Active confirmed Problem Diverticulosis of colon (545262444) Diverticulosis of colon (K57.30) Active confirmed Plan Of Treatment Future Test Test Name Order Date COLONOSCOPY 11/01/2015 COLONOSCOPY 08/17/2021 Insurance Providers Payer Name Payer Address Payer Phone Subscriber Number Group Number Insured Name Patient Relationship to Insured Coverage Start Date Coverage End Date [facility] [address] [place], [place] [id number] LEXIE PINON Self - patient is the insured Medical (General) History Medical History History ICD Code Screening colonoscopy in 200 5 was negative other than hyperplastic polyp; colonoscopy on 07-09-2010 revealed a small tubular adenoma that was removed, as well as some sigmoid diverticulosis and small internal hemorrhoids Denies [place],CVA,Lung disease,renal disease HTN Hyperlipidemia NIDDM Colonoscopy 02/2016 with a tubular adeno ma removed Surgical History Surgery Date(Month/Year) Tonsillectomy
[2024-06-25 11:21] LABS: MANUAL DIFF FLAG NO
[2024-06-25 11:31] LABS: Appearance Urine Clear; Color Urine Yellow; Glucose Urine UA Negative (Negative); Leukocyte Esterase Urine Negative (Negative); Nitrite Urine Negative (Negative); PH 6.5 (5.0-9.0); Specific Gravity - Urine 1.015 (1.005-1.025); Urine Blood Negative (Negative); Urine Ketones Negative (Negative); Urine Protein Negative (Neg-Trace)
[2024-06-25 11:44] LABS: Basophils Absolute Auto 0.1 X10*3/uL (0.0-0.2); Basophils Percent Auto 0.7 % (0-2); Eosinophils Absolute Auto 0.1 X10*3/uL (0.0-0.4); Eosinophils Percent Auto 1.4 % (0-4); Hemoglobin 15.5 g/dl (14.0-18.0); Imm Gran Abs Auto 0.03 X10*3/uL (0.00-0.03); Imm Gran Pct Auto 0.4 % (0.0-0.4); Lymphocytes Absolute Auto 2.6 X10*3/uL (1.2-4.9); Lymphocytes Percent Auto 32.3 % (20-40); Mean Corpuscular HGB Conc 35.2 g/dl (31.0-36.0); Mean Corpuscular Hemoglobin 32.7 pg (27.0-33.0); Mean Corpuscular Volume 92.8 fL (80.0-98.0); Mean Platelet Volume 10.3 fL (9.4-12.4); Monocytes Absolute Auto 0.7 X10*3/uL (0.1-1.2); Monocytes Percent Auto 8.7 % (2-11); Neutrophils Absolute Auto 4.6 x10*3/uL (2.0-8.3); Neutrophils Percent Auto 56.5 % (45-73); Platelet Count 294 X10*3/uL (160-400); Red Blood Count 4.74 X10*6/uL (4.60-5.80); Red Cell Distribution Width 12.5 % (11.0-16.0); White Blood Count 8.1 X10*3/uL (4.8-10.8)
[2024-06-25 12:27] LABS: Creatinine Urine 151.43 mg/dL; Microalbum/Creatinine Ratio Ur 4.6 ug/mg cr (<30)
[2024-06-25 12:36] LABS: Alanine Aminotransferase 25 U/L (0-40); Albumin Level 4.3 g/dL (3.5-5.0); Alkaline Phosphatase 59 U/L (39-117); Anion Gap 13 (12-20); Aspartate Amino Transferase 30 U/L (5-37); Bilirubin Total 1.3 mg/dL (0.0-1.0); Blood Urea Nitrogen 10 mg/dL (9-16); Calcium 9.2 mg/dL (8.4-10.2); Carbon Dioxide 27 mmol/L (22-29); Chloride 98 mmol/L (96-108); Cholesterol 160 mg/dL (<200); Estimated Glomerular Filt Rate > 60; Glucose Fasting 111 mg/dL (60-99); HDL Cholesterol 78 mg/dL (>40); LDL Cholesterol Calculated 51 mg/dL (<100); Potassium 3.6 mmol/L (3.3-5.1); Sodium 134 mmol/L (135-145); Total Protein 7.3 g/dL (6.5-8.0); Triglycerides 158 mg/dL (<150)
[2024-06-30 21:38] LABS: PSA, Ultra Sensitive 2.88 ng/mL
== END 2024-06-25 08:32 | disposition home or self-care (01) ==
LOC: HO.WFDLDS 08:31
PROVIDERS: Visit Provider Nurse Practitioner Family
DX: Z00.00 Encounter for general adult medical examination without abnormal findings (principal); E78.5 Hyperlipidemia, unspecified; Z12.5 Encounter for screening for malignant neoplasm of prostate
CPT/HCPCS: 36415; 80053; 80061; 81003; 82043; 82570; 84153; 84443; 85025

== ENCOUNTER 2024-06-30 10:10 | Outpatient (AMB) | payer MEDICARE, SELFPAY ==
--- NOTE | 2024-06-30 10:14 | MHC.PC.OV ---
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 Required: No Allergies No Known Allergies Allergy (Verified 06/30/24 10:46) Medication List - Last Reconciled 06/30/24 by Heidy Loving CNP atorvastatin 20 mg PO DAILY hydrochlorothiazide 25 mg PO DAILY 90 days lisinopril 40 mg PO DAILY tadalafil 5 mg PO DAILY PRN Tobacco use date assessed: 06/30/24 Fall risk assessment: No Falls in past year Last assessed Fall Risk: 06/30/24 Dental Screening Dental Screen Date: 06/30/24 Did you have a dental visit in the last 12 months?: Yes Did you have a dental problem in the last 6 months where you did not have access to dental care?: No Was dental information given to patient?: Patient has dentist HPI HPI Comments History of Present Illness Details 74-year-old male presents for an extended physical exam. He admits to taking his medications as prescribed without adverse reactions. Acute issue(s) - HTN: He is on lisinopril 40 mg daily and hydrochlorothiazide 25 mg daily - HDL: He is on atorvastatin 20 mg daily - ED: He is on tadalafil 5 mg daily as needed - Myopia, astigmatism: Corrected by prescription glasses Past Medical History - Hypertension, hyperlipidemia, diet-controlled diabetes, ED, myopia, astigmatism Social History - Nonsmoker. Does not vape. Drinks 3 beers 3 times weekly. Denies recreational drug use - Has been making healthy dietary choices. Walk routinely. Generally sleep well Health maintenance - Last eye exam was with Dr. Burrows a year ago. He has an eye exam scheduled in August 2024 - He sees his dentist every 6 months - Unsure of last tetanus vaccine; received Tdap vaccine today - He notes that he his up-to-date on the shingles, pneumonia - He is not vaccinated for the flu this season; received the influenza vaccine today - Last colonoscopy was with [facility] gastroenterology in 08/2021: Tubular adenoma [facility] Medical History No pertinent past medical history Surgical History History of tonsillectomy and adenoidectomy Family History Father Colon cancer Mother H/O thyroidectomy Daughter In good health Daughter In good health Sister No problems noted. Brother No problems noted. Social History Housing: House Patient Tobacco Use Status: Never used Tobacco e-Cigarette/Vaping Use: Never Used Second Hand Smoke Exposure: Yes (slightly smokes) service: No Current occupational status: retired Cognitive needs: No Hearing needs: No Vision needs: No Questionnaire PHQ-9 Over the last 2 weeks, how often have you been bothered by any of the following problems? 1. Little interest or pleasure in doing things: not at all 2. Feeling down, depressed, or hopeless: not at all 3. Trouble falling or staying asleep, or sleeping too much: not at all 4. Feeling tired or having little energy: not at all 5. Poor appetite or overeating: not at all 6. Feeling bad about yourself - or that you are a failure or have let yourself or your family down: not at all 7. Trouble concentrating on things, such as reading the newspaper or watching television: not at all 8. Moving or speaking so slowly that other people could have noticed. Or the opposite - being so fidgety or restless that you have been moving around a lot more than usual: not at all 9. Thoughts that you would be better off or of hurting yourself in some way: not at all Total score: 0 Depression Screening Interpretation: Negative Depression Screening Done: Yes 93101 - PHQ-9 Billing: Yes Source: Developed by Drs. Issa Reynolds, Autumn Wilson, Omi Carlin and colleagues, with an educational ewa from [employer]. Thrive Questionnaire Date Thrive assessed: 06/30/24 I am a: Patient What is your living situation today?: I have a steady place to live Within the past 12 months, did the food you bought not last and you didn't have the money to get more?: Never true Within the past 12 months, did you worry whether your food would run out before you got money to buy more?: Never true Do you have trouble paying for medicines?: No Do you have trouble getting transportation to medical appointments?: No Do you have trouble paying your heating and electricity bill?: No Do you have trouble taking care of your child, family member or friend?: No Do you have trouble with day-to-day activities such as bathing, preparing meals, shopping, managing finances, etc.?: No Are you currently unemployed and looking for a job?: No Are you interested in more education?: No Please select the resources that you would like help with: None Currently or been in a relationship where the following occur: No concerns reported THRIVE Score: 0 AUDIT C Alcohol Use Questionnaire (AUDIT-C) 1. How often do you have a drink containing alcohol?: 2-3 times a week 2. How many drinks containing alcohol do you have on a typical day when you are drinking?: 3 or 4 3. How often do you have six or more drinks on one occasion?: Less than monthly Total Score: 5 Score Reviewed/Action Taken: Yes SUZANNE-7 AMB Questionnaire SUZANNE-7 Date SUZANNE - 7 assessed: 06/30/24 Feeling nervous, anxious, or on edge: 1 = Several days Not being able to stop or control worryin = Not at all Worrying too much about different things: 0 = Not at all Trouble relaxin = Not at all Being so restless that it is hard to sit still: 0 = Not at all Becoming easily annoyed or irritable: 0 = Not at all Feeling afraid as if something awful might happen: 0 = Not at all Total SUZANNE-7 score (0-4 normal; 5-9 mild; 10-14 moderate; 15-21 severe): 1 Source: Developed by Drs. Issa Reynolds, Autumn Wilson, Omi Carlin and colleagues, with an educational ewa from [employer]. SUZANNE-7 Assessment Billing SUZANNE-7 Assessment Tool: SUZANNE-7 Assessment 61455 Review of Systems Const Details: Denies chills, Denies fatigue, Denies fever(s), Denies headache(s) and Denies weakness HEENT Denies change in vision, Denies dizziness, Denies headache(s), Denies hearing loss, Denies nasal congestion, Denies sinus pain, Denies sinus pressure and Denies sore throat Card Denies chest pain, Denies lightheadedness, Denies dyspnea and Denies other (palpitations) Resp Denies cough, Denies dyspnea and Denies wheezing GI Denies abdominal pain, Denies melena, Denies hematochezia, Denies change in bowel habits, Denies dyspepsia and Denies nausea Denies hematuria and Denies dysuria Musc Denies abnormal gait, Denies myalgias, Denies arthralgias, Denies numbness and Denies tingling Skin/Breast Denies rash, Denies unusual bruising and Denies wounds Neuro Denies abnormal gait, Denies dizziness, Denies headache(s), Denies memory loss, Denies numbness, Denies Sensory deficit (Neuro), Denies tingling and Denies weakness Psych Denies anxiety, Denies depression and Denies memory loss Endo Denies cold intolerance, Denies fatigue, Denies heat intolerance, Denies polydipsia and Denies polyuria Davey/Lymph Denies easy bleeding and Denies easy bruising Aller/Immun Denies wheezing Physical exam (Primary Care) Vital Signs: Last Vital Signs Temp 97.7 F 06/30/24 10:21 Pulse 88 06/30/24 10:21 Resp 16 06/30/24 10:21 BP 136/80 06/30/24 10:51 Pulse Ox 97 06/30/24 10:21 Oxygen Delivery Method Room Air 06/30/24 10:21 BMI result Body Mass Index 26.1 Tobacco/Smoking Status: Tobacco use Status Tobacco use date assessed 06/30/24 06/30/24 10:25 Patient Tobacco Use Status Never used Tobacco 06/30/24 10:20 e-Cigarette/Vaping Use Never Used 06/30/24 10:20 PHQ-9: PHQ-9 Score PHQ-9: Total score 0 06/30/24 10:49 Depression Screening Interpretation: Negative Thrive Assessment: Date of Thrive Assessment Date Thrive assessed 06/30/24 06/30/24 10:20 Currently or been in a relationship where the following occur: No concerns reported Const Other: General: no acute distress, well developed, alert and awake Nutritional Appearance: well nourished Orientation/consciousness: patient oriented x3 [facility] Head: Yes normocephalic and Yes atraumatic Ears: hearing grossly normal bilaterally and TM's normal bilaterally General nose exam: Normal external nose present and Normal nares present Mouth: Normal oral and palatal mucosa present and moist mucous membranes Teeth and gingiva: dentition normal Throat: Yes oropharynx normal Eyes Pupils: Equal, round and reactive pupils present and Pupil accommodation reflex normal EOM: EOMs intact bilaterally Neck Neck: Yes normal visual inspection, Yes no lymphadenopathy and Yes trachea midline Thyroid: Thyroid normal Carotids: no bruits Lymphatic: no lymphadenopathy noted Chest Chest palpation & inspection: normal inspection of the chest Resp Effort & Inspection: normal respiratory effort Auscultation: clear to auscultation bilaterally Cardio Rate: regular rate Rhythm: regular rhythm Heart sounds: S1 normal heart sound present, S2 normal heart sound present, no gallops, no murmurs and no rubs Bruits: no abdominal aortic bruits and no carotid bruits GI Palpation (GI): No Abdominal aortic bruit present, Soft to palpation, nontender, No hepatosplenomegaly present and No Rebound tenderness present Auscultation: normal bowel sounds General: Yes no CVA tenderness Back/Spine/Pelvis Back: no CVA tenderness Cervical Spine: cervical ROM normal and No Cervical spine tenderness Thoracic/Lumbar Spine: thoraco-lumbar ROM normal, No pain with thoraco-lumbar ROM, No thoracic spinal tenderness and No lumbar spinal tenderness Skin General: warm and dry. Normal skin color. Normal skin turgor Lesions: no lesions Rashes: no rashes Trauma: no lacerations or abrasions Wounds: no wounds Nails: normal Neuro General: patient oriented x3, gait normal and CN's II-XI intact bilaterally Cranial nerves: Yes Equal, round and reactive pupils present Cognition (Neuro): normal cognition Gait exam (Neuro): Normal gait present Motor exam (neuro): 5/5 motor strength present throughout Sensory Exam: No Sensory deficit (Neuro) Deep tendon reflexes (DTR's): Right patellar reflex intensity grade: 2+ and Left patellar reflex intensity grade: 2+ Extrem General: Yes normal to inspection, No edema and No calf tenderness Psych Appearance: grossly normal Affect: normal affect Attitude: cooperative Thought process: Normal thought process present Office Procedures Flu Questionnaire Does the patient have a severe egg allergy?: No Does the patient have severe life threatening allergies?: No Does the patient have a fever or illness today?: No Has the patient ever had Guillain-[place] Syndrome?: No Has the patient ever had any past reaction to a flu shot?: No Results AMB Hemoglobin A1c AMB Hemoglobin A1c 5.3 % Last Edit by Kymberly Moncada MA on 06/30/24 12:02 Immunizations Fluarix Triv [id number] (PF) 45 mcg (15 mcg x 3)/0.5 mL IM syringe Performing Provider: Heidy Loving CNP Performing Location: [facility] Administered by: Jos Tirado RN on 06/30/24 11:22 Dose Route Admin Location Dispensed Lot Number Expiration Date NDC Stem Processing Machine Operator 0.5 mL IM Left Deltoid 0.5 mL [id number] 10/18/24 [id number] VIS Given Date VIS Provided VIS Publication Date 06/30/24 Single Vaccine 20 Eligibility Eligibility Date Funding Source Not VFC Eligible 06/30/24 Private Boostrix Tdap 2.5 Lf unit-8 mcg-5 Lf/0.5 mL intramuscular syringe Performing Provider: Heidy Loving CNP Performing Location: [facility] Administered by: Jos Tirado RN on 06/30/24 11:25 Dose Route Admin Location Dispensed Lot Number Expiration Date NDC Stem Processing Machine Operator 0.5 mL IM Left Deltoid 0.5 mL [id number] 08/07/26 [id number] VIS Given Date VIS Provided VIS Publication Date 06/30/24 Single Vaccine 20 Eligibility Eligibility Date Funding Source Not VFC Eligible 06/30/24 Private Coding Level of Care Code Est Pt Level 3 (71584) Est Pt Prev Care >65y(37042) Diagnoses Normal physical exam Z00.00 Essential hypertension I10 Diabetes type 2, controlled E11.9 Screening for prostate cancer Z12.5 Hyponatremia E87.1 Bilirubinemia E80.6 Hyperlipidemia E78.5 Additional Codes SUZANNE-7 Assessment Billing - SUZANNE-7 Assessment Tool: SUZANNE-7 Assessment 18324 ([id number]) PHQ-9 - 42250 - PHQ-9 Billing: Yes ([id number]) Assessment & Plan Assessment & Plan (1) Normal physical exam: Code(s): Z00.00 - Encounter for general adult medical examination without abnormal findings Category: Medical Plan: No significant functional limitation noted. Continue current treatment regimen. Follow-up for hypertension, diabetes, and hyperlipidemia in 3 months. Return sooner with symptoms or concerns. Verbalized understanding and agreed with treatment plan. (2) Essential hypertension: Code(s): I10 - Essential (primary) hypertension Category: Medical Plan: Resting blood pressure is 136/80, slightly above goal of less than 130/80. Continue current treatment regimen. Follow-up in 3 months. Verbalized understanding and agreed with treatment plan. (3) Diabetes type 2, controlled: Code(s): E11.9 - Type 2 diabetes mellitus without complications Category: Medical Plan: Recent fasting glucose is slightly elevated, 111. He has diet controlled diabetes. A1c today is 5.3%, normal. Previous A1c was 5.5%. Healthy diet and routine exercise encouraged. Follow-up in 3 months. Verbalized understanding and agreed with treatment plan. (4) Screening for prostate cancer: Code(s): Z12.5 - Encounter for screening for malignant neoplasm of prostate Category: Medical Plan: PSA lab pending result. (5) Hyponatremia: Code(s): E87.1 - Hypo-osmolality and hyponatremia Category: Medical Plan: Recent sodium level is slightly low, 134. Will recheck sodium level today. Will make changes as needed. Verbalized understanding and agreed with the plan. (6) Bilirubinemia: Code(s): E80.6 - Other disorders of bilirubin metabolism Category: Medical Plan: Recent bilirubin level is slightly elevated, 1.3. Will recheck bilirubin level today. Will make changes as needed. Verbalized understanding and agreed with the plan. (7) Hyperlipidemia: Code(s): E78.5 - Hyperlipidemia, unspecified Category: Medical Plan: Recent triglyceride level is slightly elevated, 158. Continue to take atorvastatin as prescribed. Advised to limit foods high in saturated fat and avoid foods high in trans fat. Routine exercise encouraged. Fast for 10-12 hours, may drink water, and perform lipid panel blood work 2-3 days before next visit. Follow-up in 3 months. Verbalized understanding and agreed with treatment plan. Orders: Orders Lipid Panel 3 Months E78.5 - Hyperlipidemia, unspecified Influenza [id number] Immunization Today Z23 - Encounter for immunization TDaP Immunization Today Z23 - Encounter for immunization Sodium Today E87.1 - Hypo-osmolality and hyponatremia Bilirubin Total Today E80.6 - Other disorders of bilirubin metabolism AMB Hemoglobin A1c Today Z13.9 - Encounter for screening, unspecified
[2024-06-30 10:21] VITALS: BP 160/91; PULSE 88; RESP 16; TEMP 36.5; O2SAT 97; BMI 26.1
[2024-06-30 10:51] VITALS: BP 136/80
--- OUTSIDE RECORDS SUMMARY | 2024-06-30 11:39 | XMS_ITS | Patient Health Record ---
Author Organization [facility] Address [address] [place] [address] Care Team Providers Care Nursing Administrator Name Role Phone LON GRIFFIN NP Primary Care Provider Issa Del Toro Unavailable [phone] Allergies No Known Allergies Reason For Referral [...] Problem Status W/U Status Risk Notes Problem 792407828 Encounter for screening for malignant neoplasm of colon (Z12.11) Active confirmed Problem 326184265 History of adenomatous polyp of colon (Z86.010) Active confirmed Problem Screening for malignant neoplasm of rectum (650881896) Encounter for screening for malignant neoplasm of rectum (Z12.12) Active confirmed Problem 06517988 Preprocedural examination (Z01.818) Active confirmed Problem 288527624 Family history o f colon cancer (Z80.0) Active confirmed Problem Diverticulosis of colon (269909349) Diverticulosis of colon (K57.30) Active confirmed Plan Of Treatment Future Test Test Name Order Date COLONOSCOPY 11/01/2015 COLONOSCOPY 08/17/2021 Insurance Providers Payer Name Payer Address Payer Phone Subscriber Number Group Number Insured Name Patient Relationship to Insured Coverage Start Date Coverage End Date [facility] [address] [place], [place] [id number] LEXIE PINON Self - patient is the insured Medical (General) History Medical History History ICD Code Screening colonoscopy in 200 5 was negative other than hyperplastic polyp; colonoscopy on 07-09-2010 revealed a small tubular adenoma that was removed, as well as some sigmoid diverticulosis and small internal hemorrhoids Denies MD,CVA,Lung disease,renal disease HTN Hyperlipidemia NIDDM Colonoscopy 02/2016 with a tubular adeno ma removed Surgical History Surgery Date(Month/Year) Tonsillectomy
== END 2024-06-30 11:22 | disposition home or self-care (01) ==
LOC: HO.HMCFM 10:11
PROVIDERS: PCP Nurse Practitioner Family; Visit Provider Nurse Practitioner Family
DX: Z00.00 Encounter for general adult medical examination without abnormal findings (principal); I10 Essential (primary) hypertension; E11.9 Type 2 diabetes mellitus without complications; Z12.5 Encounter for screening for malignant neoplasm of prostate; E87.1 Hypo-osmolality and hyponatremia; E80.6 Other disorders of bilirubin metabolism; E78.5 Hyperlipidemia, unspecified; Z23 Encounter for immunization

== ENCOUNTER → 2024-06-30 10:10 | Outpatient (BNVA) | payer MEDICARE, SELFPAY | PROVIDERS: PCP Nurse Practitioner Family; Visit Provider Nurse Practitioner Family | DX: Z00.00 Encounter for general adult medical examination without abnormal findings (principal); Z23 Encounter for immunization; I10 Essential (primary) hypertension; E11.9 Type 2 diabetes mellitus without complications; E87.1 Hypo-osmolality and hyponatremia; E80.6 Other disorders of bilirubin metabolism; E78.5 Hyperlipidemia, unspecified | CPT/HCPCS: 36415; 82247; 83036; 84295; 90471; 90656; 90715; 96127; 99212; 99397 ==

== ENCOUNTER 2024-06-30 11:30 | Outpatient (REF) | payer MEDICARE, SELFPAY ==
[2024-06-30 15:01] LABS: Bilirubin Total 1.7 mg/dL (0.0-1.0); Sodium 135 mmol/L (135-145)
== END 2024-06-30 11:31 | disposition home or self-care (01) ==
LOC: HO.WFDLDS 11:30
PROVIDERS: Visit Provider Nurse Practitioner Family
DX: Z13.89 Encounter for screening for other disorder (principal)
CPT/HCPCS: 36415; 82247; 84295

== ENCOUNTER 2024-09-29 08:17 | Outpatient (REF) | payer MEDICARE, SELFPAY ==
--- OUTSIDE RECORDS SUMMARY | 2024-09-29 08:25 | XMS_ITS | Patient Health Record ---
Author Organization [facility] Address [address] [place] [address] Care Team Providers Care Test Hole Driller Name Role Phone LON GRIFFIN NP Primary Care Provider Issa Del Toro Unavailable [phone] Allergies No Known Allergies Reason For Referral [...] Problem Status W/U Status Risk Notes Problem 068683950 Encounter for screening for malignant neoplasm of colon (Z12.11) Active confirmed Problem 187342461 History of adenomatous polyp of colon (Z86.010) Active confirmed Problem Screening for malignant neoplasm of rectum (480846324) Encounter for screening for malignant neoplasm of rectum (Z12.12) Active confirmed Problem 62316195 Preprocedural examination (Z01.818) Active confirmed Problem 765601610 Family history o f colon cancer (Z80.0) Active confirmed Problem Diverticulosis of colon (262022523) Diverticulosis of colon (K57.30) Active confirmed Plan Of Treatment Future Test Test Name Order Date COLONOSCOPY 11/01/2015 COLONOSCOPY 08/17/2021 Insurance Providers Payer Name Payer Address Payer Phone Subscriber Number Group Number Insured Name Patient Relationship to Insured Coverage Start Date Coverage End Date [facility] [address] [place], [place] [id number] LEXIE PINON Self - patient is the insured Medical (General) History Medical History History ICD Code Screening colonoscopy in 200 5 was negative other than hyperplastic polyp; colonoscopy on 07-09-2010 revealed a small tubular adenoma that was removed, as well as some sigmoid diverticulosis and small internal hemorrhoids Denies [place],CVA,Lung disease,renal disease HTN Hyperlipidemia NIDDM Colonoscopy 02/2016 with a tubular adeno ma removed Surgical History Surgery Date(Month/Year) Tonsillectomy
[2024-09-29 11:51] LABS: Cholesterol 155 mg/dL (<200); HDL Cholesterol 73 mg/dL (>40); LDL Cholesterol Calculated 58 mg/dL (<100); Triglycerides 122 mg/dL (<150)
[2024-09-29 12:14] LABS: Creatinine Urine 93.62 mg/dL; Microalbumin Urine < 5.0 mg/L
== END 2024-09-29 08:18 | disposition home or self-care (01) ==
LOC: HO.WFDLDS 08:17
PROVIDERS: Visit Provider Nurse Practitioner Family
DX: Z00.00 Encounter for general adult medical examination without abnormal findings (principal); E11.9 Type 2 diabetes mellitus without complications; E78.5 Hyperlipidemia, unspecified
CPT/HCPCS: 36415; 80061; 82043; 82570

== ENCOUNTER 2024-10-05 09:58 | Outpatient (AMB) | payer MEDICARE, SELFPAY ==
--- NOTE | 2024-10-05 10:00 | A.OFFPC_ITS ---
Vital Signs 10/05/24 10:07 Height 6 ft 1 in Weight 195 lb 8 oz BMI 25.8 BP 119/77 Blood Pressure Location Rt brachial Position Sitting Respiration 16 Pulse 88 Pulse Source Pulse Oximeter Temp 97.4 F Temp Source Oral Pulse Oximetry (%) 95 Oxygen Delivery Method Room Air Intake Visit Reasons: 3 mos HTN, HLD, DM Intake Note: patient here for 3 month follow up on HTN, HLD, DM Driver Messenger Required: No Allergies No Known Allergies Allergy (Verified 10/05/24 10:36) Medication List - Last Reconciled 10/05/24 by Heidy Loving CNP atorvastatin 20 mg PO DAILY hydrochlorothiazide 25 mg PO DAILY 90 days lisinopril 40 mg PO DAILY tadalafil 5 mg PO DAILY PRN Tobacco use date assessed: 10/05/24 Fall risk assessment: No Falls in past year Last assessed Fall Risk: 10/05/24 Dental Screening Dental Screen Date: 10/05/24 Did you have a dental visit in the last 12 months?: Yes Did you have a dental problem in the last 6 months where you did not have access to dental care?: No Was dental information given to patient?: Patient has dentist HPI HPI Comments History of Present Illness Details 74-year-old male presents for hypertensi on, hyperlipidemia, and diet-co ntrolled diabetes. He admits to taking his medications as prescribed without adverse reactions. He notes that he has been making healthy lifestyle changes. Reports anxiety attacks 2-3 times weekly. He notes extreme anxiousness related to managing his and his 's medical and financial needs. His symptoms have been ongoing for the past few weeks. He denies depression. [facility] Medical History No pertinent past medical history Surgical History History of tonsillectomy and adenoidectomy Family History Father Colon cancer Mother H/O thyroidectomy Daughter In good health Daughter In good health Sister No problems noted. Brother No problems noted. Social History Housing: House Patient Tobacco Use Status: Never used Tobacco e-Cigarette/Vaping Use: Never Used Second Hand Smoke Exposure: Yes (slightly smokes) service: No Current occupational status: retired Current occupational exposures/hazards: No Cognitive needs: No Hearing needs: No Vision needs: No Questionnaire Thrive Questionnaire Date Thrive assessed: 06/30/24 I am a: Patient What is your living situation today?: I have a steady place to live Within the past 12 months, did the food you bought not last and you didn't have the money to get more?: Never true Within the past 12 months, did you worry whether your food would run out before you got money to buy more?: Never true Do you have trouble paying for medicines?: No Do you have trouble getting transportation to medical appointments?: No Do you have trouble paying your heating and electricity bill?: No Do you have trouble taking care of your child, family member or friend?: No Do you have trouble with day-to-day activities such as bathing, preparing meals, shopping, managing finances, etc.?: No Are you currently unemployed and looking for a job?: No Are you interested in more education?: No Please select the resources that you would like help with: None Currently or been in a relationship where the following occur: No concerns reported THRIVE Score: 0 SUZANNE-7 AMB Questionnaire SUZANNE-7 Date SUZANNE - 7 assessed: 06/30/24 Source: Developed by Drs. Issa Reynolds, Autumn Wilson, Omi Carlin and colleagues, with an educational ewa from [employer]. Review of Systems Const Details: Const Denies chills, Denies fatigue, Denies fever(s), Denies headache(s) and Denies weakness ENT Denies dizziness and Denies headache(s) Card Denies chest pain, Denies lightheadedness, Denies dyspnea and Denies other (Palpitations) Resp Denies cough, Denies dyspnea, Denies wheezing and Denies other ( shortness of breath) GI Denies abdominal pain, Denies melena, Denies hematochezia, Denies change in bowel habits, Denies dyspepsia and Denies nausea Denies hematuria and Denies dysuria Musc Denies abnormal gait, Denies myalgias, Denies arthralgias, Denies numbness and Denies tingling Skin/Breast Denies rash, Denies unusual bruising and Denies wounds Neuro Denies abnormal gait, Denies dizziness, Denies headache(s), Denies memory loss, Denies numbness, Denies Sensory deficit (Neuro), Denies tingling and Denies weakness Psych Reports anxiety, Denies depression, Denies memory loss Endo Denies cold intolerance, Denies fatigue, Denies heat intolerance, Denies polydipsia and Denies polyuria Aller/Immun Denies wheezing Physical exam (Primary Care) Vital Signs: Last Vital Signs Temp 97.4 F 10/05/24 10:07 Pulse 88 10/05/24 10:07 Resp 16 10/05/24 10:07 BP 119/77 10/05/24 10:07 Pulse Ox 95 10/05/24 10:07 Oxygen Delivery Method Room Air 10/05/24 10:07 BMI result Body Mass Index 25.8 Tobacco/Smoking Status: Tobacco use Status Tobacco use date assessed 10/05/24 10/05/24 10:10 Patient Tobacco Use Status Never used Tobacco 10/05/24 10:10 e-Cigarette/Vaping Use Never Used 10/05/24 10:10 Thrive Assessment: Date of Thrive Assessment Date Thrive assessed 06/30/24 10/05/24 10:10 Currently or been in a relationship where the following occur: No concerns reported Const Other: General: no acute distress and well developed Nutritional Appearance: well nourished Orientation/consciousness: patient oriented x3 HENMT Head: Yes normocephalic and Yes atraumatic Eyes General: appearance normal, both eyes and all related structures Pupils: Equal, round and reactive pupils present EOM: EOMs intact bilaterally Resp Effort & Inspection: normal respiratory effort Auscultation: clear to auscultation bilaterally Cardio Rate: regular rate Rhythm: regular rhythm Heart sounds: S1 normal heart sound present, S2 normal heart sound present, no gallops, no murmurs and no rubs GI Palpation (GI): No Abdominal aortic bruit present, Soft to palpation, nontender, No hepatosplenomegaly present and No Rebound tenderness present Auscultation: normal bowel sounds General: Yes no CVA tenderness Back/Spine/Pelvis Back: no CVA tenderness Cervical Spine: cervical ROM normal and No Cervical spine tenderness Thoracic/Lumbar Spine: thoraco-lumbar ROM normal, No pain with thoraco-lumbar ROM, No thoracic spinal tenderness and No lumbar spinal tenderness Extrem General: Yes normal to inspection, No edema and No calf tenderness Skin General: warm and dry. Normal skin color. Normal skin turgor Neuro General: patient oriented x3, gait normal and no focal neuro deficit Cranial nerves: Yes Equal, round and reactive pupils present Cognition (Neuro): normal cognition Gait exam (Neuro): Normal gait present Sensory Exam: No Sensory deficit (Neuro) Psych Appearance: grossly normal Affect: normal affect Attitude: cooperative Thought process: Normal thought process present Results AMB Hemoglobin A1c AMB Hemoglobin A1c 5.6 % Last Edit by Kymberly Moncada MA on 10/05/24 10:49 Results Reviewed Results Reviewed: Laboratory Last Values Hgb A1c (Clinic) 5.6 % (4.0-6.0) 10/05/24 10:35 Coding Level of Care Code Est Pt Level 3 (81167) Complex EM visit Add On G2211 Diagnoses Essential hypertension I10 Diabetes type 2, controlled E11.9 Hyperlipidemia E78.5 Anxiety F41.9 Assessment & Plan Assessment & Plan (1) Essential hypertension: Code(s): I10 - Essential (primary) hypertension Category: Medical Plan: Resting blood pressure is 119/77, within goal of less than 130/80. Continue current treatment regimen. Low-sodium diet encouraged. Follow-up in 4 months or sooner with symptoms or concerns. Verbalized understanding and agreed with the treatment plan. (2) Diabetes type 2, controlled: Code(s): E11.9 - Type 2 diabetes mellitus without complications Category: Medical Plan: A1c today is 5.6%, within goal of less than 7.0%. ADA diet and routine exercise encouraged. Will monitor A1c every 6-12 months. Verbalized understanding and agreed with the plan. (3) Hyperlipidemia: Code(s): E78.5 - Hyperlipidemia, unspecified Category: Medical Plan: Recent lipid panel level is normal. Continue current treatment regimen. Advised to limit foods high in saturated fat and avoid foods high in trans fat. Routine exercise encouraged. Will monitor lipid panel levels every 6-12 months. Verbalized understanding and agreed with the treatment plan. (4) Anxiety: Code(s): F41.9 - Anxiety disorder, unspecified Category: Medical Plan: Reports anxiety attacks 2-3 times weekly. He notes extreme anxiousness related to managing his and his 's medical and financial needs. His symptoms have been ongoing for the past few weeks. He denies depression. Will trial hydroxyzine 25 mg 3 times daily as needed for anxiety; advised to take as prescribed. Instructed on the risks, benefits, and potential adverse reactions of the medications. Routine exercise encouraged. Recommend follow-up in 1 month. However, he notes that he will follow-up for anxiety at his hypertension follow-up in 3 months. He will notify his PCP if his symptoms persist or worsen. Verbalized understanding and agreed with the treatment plan. Orders: Orders AMB Hemoglobin A1c 10/05/24 Z13.9 - Encounter for screening, unspecified
[2024-10-05 10:07] VITALS: BP 119/77; PULSE 88; RESP 16; TEMP 36.3; O2SAT 95; BMI 25.8
--- OUTSIDE RECORDS SUMMARY | 2024-10-05 11:18 | XMS_ITS | Patient Health Record ---
Author Organization [facility] Address [address] [place] [address] Care Team Providers Care Senior Oracle Database Developer Name Role Phone LON GRIFFIN NP Primary Care Provider Issa Del Toro Unavailable [phone] Allergies No Known Allergies Reason For Referral [...] Problem Status W/U Status Risk Notes Problem 164150546 Encounter for screening for malignant neoplasm of colon (Z12.11) Active confirmed Problem 521830137 History of adenomatous polyp of colon (Z86.010) Active confirmed Problem Screening for malignant neoplasm of rectum (688209443) Encounter for screening for malignant neoplasm of rectum (Z12.12) Active confirmed Problem 08669589 Preprocedural examination (Z01.818) Active confirmed Problem 792532604 Family history o f colon cancer (Z80.0) Active confirmed Problem Diverticulosis of colon (104942114) Diverticulosis of colon (K57.30) Active confirmed Plan Of Treatment Future Test Test Name Order Date COLONOSCOPY 11/01/2015 COLONOSCOPY 08/17/2021 Insurance Providers Payer Name Payer Address Payer Phone Subscriber Number Group Number Insured Name Patient Relationship to Insured Coverage Start Date Coverage End Date [facility] [address] [place], [place] [id number] LEXIE PINON Self - patient is the insured Medical (General) History Medical History History ICD Code Screening colonoscopy in 200 5 was negative other than hyperplastic polyp; colonoscopy on 07-09-2010 revealed a small tubular adenoma that was removed, as well as some sigmoid diverticulosis and small internal hemorrhoids Denies IA,CVA,Lung disease,renal disease HTN Hyperlipidemia NIDDM Colonoscopy 02/2016 with a tubular adeno ma removed Surgical History Surgery Date(Month/Year) Tonsillectomy
== END 2024-10-05 10:46 | disposition home or self-care (01) ==
LOC: HO.HMCFM 09:59
PROVIDERS: PCP Nurse Practitioner Family; Visit Provider Nurse Practitioner Family
DX: I10 Essential (primary) hypertension (principal); E11.9 Type 2 diabetes mellitus without complications; E78.5 Hyperlipidemia, unspecified; F41.9 Anxiety disorder, unspecified

== ENCOUNTER → 2024-10-05 09:58 | Outpatient (BNVA) | payer MEDICARE, SELFPAY | PROVIDERS: PCP Nurse Practitioner Family; Visit Provider Nurse Practitioner Family | DX: E11.9 Type 2 diabetes mellitus without complications (principal); I10 Essential (primary) hypertension; E78.5 Hyperlipidemia, unspecified; F41.9 Anxiety disorder, unspecified | CPT/HCPCS: 83036; 99212 ==

== ENCOUNTER 2025-01-05 07:56 | Outpatient (REF) | payer MEDICARE, SELFPAY ==
--- OUTSIDE RECORDS SUMMARY | 2025-01-05 08:02 | XMS_ITS | Patient Health Record ---
Author Organization [facility] Address [address] [place] [address] Care Team Providers Care Chain Repairer Name Role Phone LON GRIFFIN NP Primary Care Provider Issa Del Toro Unavailable [phone] Allergies No Known Allergies Reason For Referral [...] Problem Status W/U Status Risk Notes Problem 353285940 Encounter for screening for malignant neoplasm of colon (Z12.11) Active confirmed Problem 111287567 History of adenomatous polyp of colon (Z86.010) Active confirmed Problem Screening for malignant neoplasm of rectum (578304478) Encounter for screening for malignant neoplasm of rectum (Z12.12) Active confirmed Problem 74550698 Preprocedural examination (Z01.818) Active confirmed Problem 477903676 Family history o f colon cancer (Z80.0) Active confirmed Problem Diverticulosis of colon (185978045) Diverticulosis of colon (K57.30) Active confirmed Plan Of Treatment Future Test Test Name Order Date COLONOSCOPY 11/01/2015 COLONOSCOPY 08/17/2021 Insurance Providers Payer Name Payer Address Payer Phone Subscriber Number Group Number Insured Name Patient Relationship to Insured Coverage Start Date Coverage End Date [facility] [address] [place], [place] [id number] [phone] [id number] LEXIE PINON Self - patient is the insured Medical (General) History Medical History History ICD Code Screening colonoscopy in 200 5 was negative other than hyperplastic polyp; colonoscopy on 07-09-2010 revealed a small tubular adenoma that was removed, as well as some sigmoid diverticulosis and small internal hemorrhoids Denies AR,CVA,Lung disease,renal disease HTN Hyperlipidemia NIDDM Colonoscopy 02/2016 with a tubular adeno ma removed Surgical History Surgery Date(Month/Year) Tonsillectomy
[2025-01-05 11:40] LABS: Cholesterol 169 mg/dL (<200); HDL Cholesterol 83 mg/dL (>40); Triglycerides 157 mg/dL (<150)
== END 2025-01-05 07:57 | disposition home or self-care (01) ==
LOC: HO.WFDLDS 07:56
PROVIDERS: Visit Provider Nurse Practitioner Family
DX: E78.5 Hyperlipidemia, unspecified (principal)
CPT/HCPCS: 36415; 80061

== ENCOUNTER 2025-01-07 13:43 | Outpatient (AMB) | payer MEDICARE, SELFPAY ==
--- NOTE | 2025-01-07 13:45 | MHC.PC.OV ---
Vital Signs 01/07/25 13:48 Height 6 ft 1 in Weight 194 lb 2 oz BMI 25.6 BP 121/74 Blood Pressure Location Lt brachial Position Sitting Respiration 16 Pulse 102 H Pulse Source Pulse Oximeter Temp 97.5 F Temp Source Oral Pulse Oximetry (%) 97 Oxygen Delivery Method Room Air Intake Visit Reasons: 3 mos HTN, anxiety Intake Note: patient here for 3 month follow up for HTN and anxiety Termite Inspector Required: No Allergies No Known Allergies Allergy (Verified 01/07/25 13:54) Medication List - Last Reconciled 01/07/25 by Heidy Loving CNP atorvastatin 20 mg PO DAILY hydrochlorothiazide 25 mg PO DAILY 90 days hydroxyzine HCl 25 mg PO TID PRN lisinopril 40 mg PO DAILY tadalafil 5 mg PO DAILY PRN Tobacco use date assessed: 01/07/25 Fall risk assessment: No Falls in past year Last assessed Fall Risk: 01/07/25 Dental Screening Dental Screen Date: 01/07/25 Did you have a dental visit in the last 12 months?: Yes Did you have a dental problem in the last 6 months where you did not have access to dental care?: No Was dental information given to patient?: Patient has dentist HPI HPI Comments History of Present Illness Details 74-year-old male presents for hypertension and anxiety follow-up. He admits to taking his medications as prescribed without adverse reactions. Reports controlled anxiety symptoms. He notes he has been making healthy lifestyle changes. No acute symptoms at this time. [facility] Medical History No pertinent past medical history Surgical History History of tonsillectomy and adenoidectomy Family History Father Colon cancer Mother H/O thyroidectomy Daughter In good health Daughter In good health Sister No problems noted. Brother No problems noted. Social History Housing: House Patient Tobacco Use Status: Never used Tobacco e-Cigarette/Vaping Use: Never Used Second Hand Smoke Exposure: Yes (slightly smokes) service: No Current occupational status: retired Current occupational exposures/hazards: No Cognitive needs: No Hearing needs: No Vision needs: No Questionnaire PHQ-9 Over the last 2 weeks, how often have you been bothered by any of the following problems? 1. Little interest or pleasure in doing things: not at all 2. Feeling down, depressed, or hopeless: not at all 3. Trouble falling or staying asleep, or sleeping too much: not at all 4. Feeling tired or having little energy: not at all 5. Poor appetite or overeating: not at all 6. Feeling bad about yourself - or that you are a failure or have let yourself or your family down: not at all 7. Trouble concentrating on things, such as reading the newspaper or watching television: not at all 8. Moving or speaking so slowly that other people could have noticed. Or the opposite - being so fidgety or restless that you have been moving around a lot more than usual: not at all 9. Thoughts that you would be better off or of hurting yourself in some way: not at all Total score: 0 Depression Screening Interpretation: Negative Depression Screening Done: Yes 31677 - PHQ-9 Billing: Yes Source: Developed by Drs. Issa Reynolds, Autumn Wilson, Omi Carlin and colleagues, with an educational ewa from [employer]. Thrive Questionnaire Date Thrive assessed: 06/30/24 I am a: Patient What is your living situation today?: I have a steady place to live Within the past 12 months, did the food you bought not last and you didn't have the money to get more?: Never true Within the past 12 months, did you worry whether your food would run out before you got money to buy more?: Never true Do you have trouble paying for medicines?: No Do you have trouble getting transportation to medical appointments?: No Do you have trouble paying your heating and electricity bill?: No Do you have trouble taking care of your child, family member or friend?: No Do you have trouble with day-to-day activities such as bathing, preparing meals, shopping, managing finances, etc.?: No Are you currently unemployed and looking for a job?: No Are you interested in more education?: No Please select the resources that you would like help with: None Currently or been in a relationship where the following occur: No concerns reported THRIVE Score: 0 SUZANNE-7 AMB Questionnaire SUZANNE-7 Date SUZANNE - 7 assessed: 01/07/25 Feeling nervous, anxious, or on edge: 0 = Not at all Not being able to stop or control worryin = Not at all Worrying too much about different things: 0 = Not at all Trouble relaxin = Not at all Being so restless that it is hard to sit still: 0 = Not at all Becoming easily annoyed or irritable: 0 = Not at all Feeling afraid as if something awful might happen: 0 = Not at all Total SUZANNE-7 score (0-4 normal; 5-9 mild; 10-14 moderate; 15-21 severe): 0 Source: Developed by Drs. Issa Reynolds, Autumn Wilson, Omi Carlin and colleagues, with an educational ewa from [employer]. SUZANNE-7 Assessment Billing SUZANNE-7 Assessment Tool: SUZANNE-7 Assessment 05673 Review of Systems Const Details: Const Denies chills, Denies fatigue, Denies fever(s), Denies headache(s) and Denies weakness ENT Denies dizziness and Denies headache(s) Card Denies chest pain, Denies lightheadedness, Denies dyspnea and Denies other (Palpitations) Resp Denies cough, Denies dyspnea, Denies wheezing and Denies other ( shortness of breath) GI Denies abdominal pain, Denies melena, Denies hematochezia, Denies change in bowel habits, Denies dyspepsia and Denies nausea Denies hematuria and Denies dysuria Musc Denies abnormal gait, Denies myalgias, Denies arthralgias, Denies numbness and Denies tingling Skin/Breast Denies rash, Denies unusual bruising and Denies wounds Neuro Denies abnormal gait, Denies dizziness, Denies headache(s), Denies memory loss, Denies numbness, Denies Sensory deficit (Neuro), Denies tingling and Denies weakness Psych Denies anxiety, Denies depression, Denies memory loss Endo Denies cold intolerance, Denies fatigue, Denies heat intolerance, Denies polydipsia and Denies polyuria Aller/Immun Denies wheezing Physical exam (Primary Care) Vital Signs: Last Vital Signs Temp 97.5 F 01/07/25 13:48 Pulse 102 H 01/07/25 13:48 Resp 16 01/07/25 13:48 BP 121/74 01/07/25 13:48 Pulse Ox 97 01/07/25 13:48 Oxygen Delivery Method Room Air 01/07/25 13:48 BMI result Body Mass Index 25.6 Tobacco/Smoking Status: Tobacco use Status Tobacco use date assessed 01/07/25 01/07/25 13:52 Patient Tobacco Use Status Never used Tobacco 01/07/25 13:52 e-Cigarette/Vaping Use Never Used 01/07/25 13:52 PHQ-9: PHQ-9 Score PHQ-9: Total score 0 01/07/25 13:52 Depression Screening Interpretation: Negative Thrive Assessment: Date of Thrive Assessment Date Thrive assessed 06/30/24 01/07/25 13:52 Currently or been in a relationship where the following occur: No concerns reported Const Other: General: no acute distress and well developed Nutritional Appearance: well nourished Orientation/consciousness: patient oriented x3 HENMT Head: Yes normocephalic and Yes atraumatic Eyes General: appearance normal, both eyes and all related structures Pupils: Equal, round and reactive pupils present EOM: EOMs intact bilaterally Resp Effort & Inspection: normal respiratory effort Auscultation: clear to auscultation bilaterally Cardio Rate: regular rate Rhythm: regular rhythm Heart sounds: S1 normal heart sound present, S2 normal heart sound present, no gallops, no murmurs and no rubs GI Palpation (GI): No Abdominal aortic bruit present, Soft to palpation, nontender, No hepatosplenomegaly present and No Rebound tenderness present Auscultation: normal bowel sounds General: Yes no CVA tenderness Back/Spine/Pelvis Back: no CVA tenderness Cervical Spine: cervical ROM normal and No Cervical spine tenderness Thoracic/Lumbar Spine: thoraco-lumbar ROM normal, No pain with thoraco-lumbar ROM, No thoracic spinal tenderness and No lumbar spinal tenderness Extrem General: Yes normal to inspection, No edema and No calf tenderness Skin General: warm and dry. Normal skin color. Normal skin turgor Neuro General: patient oriented x3, gait normal and no focal neuro deficit Cranial nerves: Yes Equal, round and reactive pupils present Cognition (Neuro): normal cognition Gait exam (Neuro): Normal gait present Sensory Exam: No Sensory deficit (Neuro) Psych Appearance: grossly normal Affect: normal affect Attitude: cooperative Thought process: Normal thought process present Coding Level of Care Code Est Pt Level 3 (96008) Diagnoses Essential hypertension I10 Anxiety F41.9 Additional Codes SUZANNE-7 Assessment Billing - SUZANNE-7 Assessment Tool: SUZANNE-7 Assessment 62678 ([id number]) PHQ-9 - 65819 - PHQ-9 Billing: Yes ([id number]) Assessment & Plan Assessment & Plan (1) Essential hypertension: Code(s): I10 - Essential (primary) hypertension Category: Medical Plan: Blood pressure is 121/74, within goal of less than 130/80. Continue current treatment regimen. Low-sodium diet encouraged. Follow-up in 4 months or sooner with symptoms or concerns. Verbalized understanding and agreed with the plan. (2) Anxiety: Code(s): F41.9 - Anxiety disorder, unspecified Category: Medical Plan: Reports controlled anxiety symptoms. PHQ-9 and SUZANNE-7 scores are normal. Continue current treatment regimen. Routine exercise encouraged. Follow-up with symptoms or concerns. Verbalized understanding and agreed with the plan.
[2025-01-07 13:48] VITALS: BP 121/74; PULSE 102; RESP 16; TEMP 36.4; O2SAT 97; BMI 25.6
--- OUTSIDE RECORDS SUMMARY | 2025-01-07 13:53 | XMS_ITS | Patient Health Record ---
Author Organization [facility] Address [address] [place] [address] Care Team Providers Care Drier Tender Name Role Phone LON GRIFFIN NP Primary Care Provider Issa Del Toro Unavailable [phone] Allergies No Known Allergies Reason For Referral [...] Problem Status W/U Status Risk Notes Problem 979179427 Encounter for screening for malignant neoplasm of colon (Z12.11) Active confirmed Problem 276747201 History of adenomatous polyp of colon (Z86.010) Active confirmed Problem Screening for malignant neoplasm of rectum (184882382) Encounter for screening for malignant neoplasm of rectum (Z12.12) Active confirmed Problem 21237573 Preprocedural examination (Z01.818) Active confirmed Problem 905981405 Family history o f colon cancer (Z80.0) Active confirmed Problem Diverticulosis of colon (476066735) Diverticulosis of colon (K57.30) Active confirmed Plan Of Treatment Future Test Test Name Order Date COLONOSCOPY 11/01/2015 COLONOSCOPY 08/17/2021 Insurance Providers Payer Name Payer Address Payer Phone Subscriber Number Group Number Insured Name Patient Relationship to Insured Coverage Start Date Coverage End Date [facility] [address] [place], [place] [id number] [phone] [id number] LEXIE PINON Self - patient is the insured Medical (General) History Medical History History ICD Code Screening colonoscopy in 200 5 was negative other than hyperplastic polyp; colonoscopy on 07-09-2010 revealed a small tubular adenoma that was removed, as well as some sigmoid diverticulosis and small internal hemorrhoids Denies ND,CVA,Lung disease,renal disease HTN Hyperlipidemia NIDDM Colonoscopy 02/2016 with a tubular adeno ma removed Surgical History Surgery Date(Month/Year) Tonsillectomy
== END 2025-01-07 14:06 | disposition home or self-care (01) ==
LOC: HO.HMCFM 13:44
PROVIDERS: PCP Nurse Practitioner Family; Visit Provider Nurse Practitioner Family
DX: I10 Essential (primary) hypertension (principal); F41.9 Anxiety disorder, unspecified

== ENCOUNTER → 2025-01-07 13:43 | Outpatient (BNVA) | payer MEDICARE, SELFPAY | PROVIDERS: PCP Nurse Practitioner Family; Visit Provider Nurse Practitioner Family | DX: I10 Essential (primary) hypertension (principal); F41.9 Anxiety disorder, unspecified | CPT/HCPCS: 96127; 99212 ==